=== PATIENT | male | born 1955 | race Caucasian/White ===

== ENCOUNTER 2016-12-29 16:04 | Inpatient (IN) | payer OTHER ==
[~2016-12-29] VITALS: Ht 170.2 cm; Wt 93.0 kg
[~2016-12-29 16:04] MED LIST: DOCU-144 PO; HYDR-3498 PO; [UNRECOGNIZED DRUG - OTHER] IM
--- NOTE | 2016-12-29 21:35 | ERA ---
ER Documentation Chief Complaint Date/Time DATE: 12/29/16 TIME: 21:34 Chief Complaint ABDOMINAL PAIN WITH N/V X 2 DAYS HPI The patient is a 61-year-old female, presenting to the ER because of left upper quadrant abdominal pain, nausea, vomiting for 4 days. He was seen at [facility] 2 days ago and diagnosed with acute diverticulitis. He was discharged with Cipro and Flagyl. He stated that the medications are not helping him. The pain is 10/10. He denies chills, neck pain, chest pain, dyspnea. He complains of nausea, vomiting mostly mucus, denies diarrhea constipation or dysuria. He smokes half a pack a day, denies drinking Past medical history: History of left renal carcinoma Past surgical history: Left nephrectomy ROS All systems reviewed and are negative except as per history of present illness. Medications Home Meds Active Scripts Ertapenem Sodium (Invanz) 1 Gm Vial, 1 GM IM DAILY for 14 Days, VIAL Prov:MANUELA PHILLIPS 04/13/16 Hydrocodone Bit/Acetaminophen (Anexsia 5-325 Mg Tablet) 1 Tab Tablet, 1 TAB PO Q6H Y for MODERATE PAIN LEVEL 4-6 for 14 Days, #40 TAB Prov:WILDA PINEDO MD 03/29/16 Docusate Sodium* (Colace*) 100 Mg Capsule, 100 MG PO BID Y for CONSTIPATION for 30 Days, #60 CAP Prov:WILDA PINEDO MD 03/29/16 Allergies Allergies: Coded Allergies: No Known Allergy (Unverified , 04/07/16) PMhx/Soc History of Surgery: Yes (Kidney CA (s/p LEFT kidney removal 2 years ago), hx of L nephrostomy tube) Anesthesia Reaction: No Hx Neurological Disorder: No Hx Respiratory Disorders: No Hx Cardiac Disorders: No Hx Psychiatric Problems: No Hx Miscellaneous Medical Probl: Yes (Kidney CA, Gastroenteritis, Renal Abcess) Hx Alcohol Use: No Hx Substance Use: No Hx Tobacco Use: Yes (6-8 sticks/per day) Physical Exam Vitals Vital Signs Date Time Temp Pulse Resp B/P Pulse Ox O2 Delivery O2 Flow Rate FiO2 12/29/16 16:07 103.1 116 20 130/82 95 Physical Exam Const: No acute distress. Head: Atraumatic. Eyes: Normal Conjunctiva. ENT: Normal External Ears, Nose and Mouth. Neck: Full range of motion. No meningismus. Resp: Clear to auscultation bilaterally. Cardio: Regular but tachycardic Abd: Soft, non distended, normal bowel sounds, left upper quadrant tenderness, no rigidity, rebound, CVA tenderness Skin: No petechiae or rashes. Back: No midline or flank tenderness. Ext: No cyanosis, or edema. Neur: Awake and alert. No focal deficit Psych: Normal Mood and Affect. Result Diagram: 12/29/16214412/29/162144 Results 24 hrs Laboratory Tests Test 12/29/16 21:45 12/29/16 23:00 12/29/16 23:09 White Blood Count 14.010^3/ul Red Blood Count 4.6510^6/ul Hemoglobin 14.7g/dl Hematocrit 42.9% Mean Corpuscular Volume 92.3fl Mean Corpuscular Hemoglobin 31.6pg Mean Corpuscular Hemoglobin Concent 34.3g/dl Red Cell Distribution Width 13.0% Platelet Count 96622^3/UL Mean Platelet Volume 11.8fl Neutrophils % 79.4% Lymphocytes % 10.3% Monocytes % 9.3% Eosinophils % 0.4% Basophils % 0.2% Nucleated Red Blood Cells % 0.0/100WBC Neutrophils # 11.110^3/ul Lymphocytes # 1.510^3/ul Monocytes # 1.310^3/ul Eosinophils # 0.110^3/ul Basophils # 0.010^3/ul Nucleated Red Blood Cells # 0.010^3/ul Prothrombin Time 14.9Sec Prothrombin Time Ratio 1.2 INR International Normalized Ratio 1.16 Activated Partial Thromboplast Time 38.3Sec Sodium Level 135mmol/L Potassium Level 3.8mmol/L Chloride Level 101mmol/L Carbon Dioxide Level 25mmol/L Anion Gap 13 Blood Urea Nitrogen 15mg/dl Creatinine 1.08mg/dl Glucose Level 189mg/dl Lactic Acid Level 1.1mmol/L Calcium Level 9.4mg/dl Total Bilirubin 0.6mg/dl Direct Bilirubin 0.00mg/dl Indirect Bilirubin 0.6mg/dl Aspartate Amino Transf (AST/SGOT) 16IU/L Alanine Aminotransferase (ALT/SGPT) 31IU/L Alkaline Phosphatase 77IU/L Troponin I < 0.012ng/ml Total Protein 8.0g/dl Albumin 4.2g/dl Globulin 3.80g/dl Albumin/Globulin Ratio 1.10 Urine Color YELLOW Urine Clarity CLEAR Urine pH 6.0 Urine Specific [place] 1.025 Urine Ketones NEGATIVE Urine Nitrite NEGATIVE Urine Bilirubin NEGATIVE Urine Urobilinogen 0.2 E.U./dL Urine Leukocyte Esterase TRACE Urine Microscopic RBC NONE SEEN/HPF Urine Microscopic WBC 0-2/HPF Urine Squamous Epithelial Cells RARE Urine Hemoglobin NEGATIVE Urine Glucose NEGATIVE% Urine Total Protein TRACE Bedside Urine pH (LAB) 6.0 Bedside Urine Protein (LAB) 1+ Bedside Urine Glucose (UA) Negative Bedside Urine Ketones (LAB) Negative Bedside Urine Blood Negative Bedside Urine Nitrite (LAB) Negative Bedside Urine Leukocyte Esterase (L Trace Current Medications Medications (Trade) Dose Ordered Sig/Tata Route PRN Reason Start Time Stop Time Status Last Admin Dose Admin IV Flush 10 ml 10 ml STK-MED ONCE .ROUTE 12/29/16 22:57 12/29/16 22:58 DC 12/29/16 23:16 Sodium Chloride (NS) 100 ml @ ud STK-MED ONCE .ROUTE 12/29/16 22:57 12/29/16 22:58 DC 12/29/16 23:16 Iodixanol 100 ml 100 ml STK-MED ONCE .ROUTE 12/29/16 22:57 12/29/16 22:58 DC 12/29/16 23:16 Piperacillin Sod/ Tazobactam Sod 100 ml @ 200 mls/hr ONCE ONCE IVPB 12/30/16 00:30 12/30/16 00:59 Vancomycin HCl 250 ml @ 125 mls/hr ONCE IVPB 12/30/16 00:30 12/30/16 02:29 Sodium Chloride (NS) 2,900 ml @ 2,900 mls/hr BOLUS X1 ONCE IV 12/30/16 00:30 12/30/16 01:29 Procedures/[place] [id number] Radiology Main Line: [phone] DIAGNOSTIC IMAGING REPORT Patient: AVELINA RODAS : 1955 Age: 61 Sex: M MR #: [id number] DOS: 12/29/162141 Ordering MD: JONATHAN PALACIO MD Location: E/R Room/Bed: PROCEDURE: Chest. CLINICAL INDICATION: Chest pain. TECHNIQUE: Single frontal view of the chest was obtained. COMPARISON: 04/08/2016. FINDINGS: The cardiac silhouette is magnified. The aortic arch is unremarkable. Mild left basilar atelectasis/infiltrate and probable small pleural effusion. There is no pneumothorax. IMPRESSION: Mild left basilar atelectasis/infiltrate and probable small pleural effusion. .Adam Kwon MD, Date Time Electronically viewed and signed by .Adam Kwon MD, MD on 12/29/2016 22:51 .T/ CC: JONATHAN PALACIO MD [place] [id number] Radiology Main Line: [phone] DIAGNOSTIC IMAGING REPORT Patient: AVELINA RODAS : 1955 Age: 61 Sex: M MR #: [id number] DOS: 12/29/16 2142 Ordering MD: JONATHAN PALACIO MD Location: E/R Room/Bed: PROCEDURE: CT Abdomen and Pelvis with IV contrast. CLINICAL INDICATION: Status post left nephrectomy. TECHNIQUE: CT scan of the abdomen and pelvis was performed on a multidetector slice CT scanner. 90 cc of Visipaque 320 intravenous contrast material was utilized. Sagittal and coronal reformatted images were obtained from the axial source images. Images were reviewed on a high-resolution PACS workstation. Exam CTDlvol = 20 mGy and DLP = 1180 Gy-cm. One of the following 3 dose reduction techniques were used: Automated exposure control; adjustment of the mA and/or kV according to patient size; or use of iterative reconstruction technique. COMPARISON: 04/07/2016 04/25/2017. FINDINGS: The patient status post left nephrectomy. There is a recurrent centrally hypodense fluid collection within the left nephrectomy bed the left lateral aspect of the L1 vertebral body, 3.3 x 3.9 x 5.8 cm in diameter. There is thin rim of soft tissue surrounding the relatively well-defined collection. There is adjacent surgical clips and calcifications. There is no gas within the collection. There is a small amount of infiltration and fluid adjacent to collection abutting the inferior medial aspect of the spleen. There is a punctate nonobstructing calcification in the midpole of the right kidney. The right kidney normal in appearance without hydronephrosis, mass or calculus. There is no perinephric collection. The right ureter is normal caliber and without evidence for an obstructing calculus. The urinary bladder is contracted.. Prostate gland is unremarkable. There is no obstruction or ileus. The appendix is visualized and normal in size and appearance without evidence for appendicitis. There are scattered sigmoid colon diverticuli without evidence for diverticulitis. The liver is overall normal in size. The liver is mildly hypodense/fatty. No intrahepatic lesions are identified. The gallbladder is normal in appearance. There is no definite biliary ductal dilation. Pancreas is normal in appearance. The spleen is unremarkable.. Right adrenal gland is normal appearance. Left adrenal gland is not well visualized.. The aorta is normal caliber. There are minimal atherosclerotic vascular calcifications.. Limited evaluation of the lung bases demonstrates small amount of left pleural fluid and atelectasis.. There are degenerative changes of the lumbar spine. IMPRESSION: 1. Recurrent fluid collection in the left nephrectomy bed. Mild surrounding infiltration and small amount of fluid abutting the spleen. Considerations include postoperative seroma although an infection/abscess cannot be excluded. No gas within the collection. 2. Nonobstructing right renal calcification. No obstructive uropathy. 3. Fatty liver. 4. Scattered sigmoid colon diverticuli without evidence for diverticulitis. 5. Small left pleural effusion with associated atelectasis. 6. Degenerative changes of the lumbar spine. RPTAT: HMVK .Jonathan Michel MD, Date Time Electronically viewed and signed by .Jonathan Michel MD, MD on 12/30/2016 00:12 .K/ CC: JONATHAN PALACIO MD EKG: Read by emergency physician Rate/Rhythm: Normal Sinus Rhythm 83 beats/min QRS, ST, T-waves: No ST elevation, no T inversion, LAD, right bundle branch block Impression: Abnormal EKG MEDICAL MAKING DECISION: The patient is a 61-year-old male, presenting with acute recurrent left nephrectomy bed abscess, acute pneumonia. He was treated with normal saline 30 mL/kg IV, Zosyn IV, vancomycin IV , Tylenol 650 mg p.o. for fever with good response The differential diagnoses considered include but are not limited to cholelithiasis, cholecystitis, cystitis, pancreatitis, hepatitis, gastritis, peptic ulcer disease, gastric ulcer, appendicitis, diverticulitis, cholangitis, choledocholithiasis, partial small bowel obstruction. Departure Diagnosis: Primary Impression: Intra-abdominal abscess Additional Impression: Pneumonia Condition: Stable Comments I discussed the findings with the patient. I discussed the patient with the on- call hospitalist Dr. Fischer who was made aware of the lab, the treatment, the patient condition. The patient is admitted to medical surgery bed at 12:25 AM The patient's blood pressure was elevated (>120/80) but appears stable without evidence of hypertension emergency or urgency. The patient was counseled about the risks of hypertension and urged to pursue outpatient monitoring and therapy within a week with their primary care physician. JONATHAN PALACIO MD December 29, 2016 21:35
[2016-12-29 22:14] LABS: ADD SCAN DIFF NO
[2016-12-29 22:15] LABS: BASOPHILS % 0.2 % (0.0-2.0); EOSINOPHILS # 0.1 10^3/ul (0.0-0.5); EOSINOPHILS % 0.4 % (0.0-7.0); HEMATOCRIT 42.9 % (42.0-52.0); HEMOGLOBIN 14.7 g/dl (14.0-18.0); LYMPHOCYTES # 1.5 10^3/ul (0.8-2.9); LYMPHOCYTES % 10.3 % (15.0-51.0); MEAN CORPUSCULAR HEMOGLOBIN 31.6 pg (29.0-33.0); MEAN CORPUSCULAR HGB CONC 34.3 g/dl (32.0-37.0); MEAN CORPUSCULAR VOLUME 92.3 fl (82.0-101.0); MEAN PLATELET VOLUME 11.8 fl (7.4-10.4); MONOCYTE # 1.3 10^3/ul (0.3-0.9); MONOCYTES % 9.3 % (0.0-11.0); NEUTROPHIL # 11.1 10^3/ul (1.6-7.5); NEUTROPHILS % 79.4 % (39.0-77.0); PLATELET COUNT 179 10^3/UL (140-415); RED BLOOD COUNT 4.65 10^6/ul (4.70-6.10)
[2016-12-29 22:29] LABS: INR 1.16; PROTIME 14.9 Sec (12.2-14.2); PT RATIO 1.2
[2016-12-29 22:30] LABS: PARTIAL THROMBOPLASTIN TIME 38.3 Sec (25.0-35.0)
[2016-12-29 22:34] LABS: ALANINE AMINOTRANSFERASE 31 IU/L (13-69); ALBUMIN 4.2 g/dl (3.3-4.9); ALKALINE PHOSPHATASE 77 IU/L (42-121); ANION GAP 13 (8-16); ASPARTATE AMINO TRANSFERASE 16 IU/L (15-46); BILIRUBIN,INDIRECT 0.6 mg/dl (0-1.1); BILIRUBIN,TOTAL 0.6 mg/dl (0.2-1.3); BLOOD UREA NITROGEN 15 mg/dl (7-20); CALCIUM 9.4 mg/dl (8.4-10.2); CARBON DIOXIDE 25 mmol/L (21-31); CHLORIDE 101 mmol/L (97-110); CREATININE 1.08 mg/dl (0.61-1.24); GLUCOSE 189 mg/dl (70-220); POTASSIUM 3.8 mmol/L (3.5-5.1); SODIUM 135 mmol/L (135-144)
[2016-12-29 22:48] LABS: TROPONIN-I < 0.012 ng/ml (0.00-0.12)
--- NOTE | 2016-12-29 22:51 | RADRPT ---
PROCEDURE: Chest. CLINICAL INDICATION: Chest pain. TECHNIQUE: Single frontal view of the chest was obtained. COMPARISON: 04/08/2016. FINDINGS: The cardiac silhouette is magnified. The aortic arch is unremarkable. Mild left basilar atelectasi s/infiltrate and probable small pleural effusion. There is no pneumothorax. IMPRESSION: Mild left basilar atelectasis/infiltrate and probable small pleural effusion. .Adam Kwon MD, MD Date Time Electronically viewed and signed by .Adam Kwon MD, MD on 12/29/2016 22:51 .T/
[2016-12-29] MEDS ORDERED: IODIXANOL LOCM 100 ML BTL ONE (22:57)
[2016-12-29] MEDS ORDERED: SOD CHLORIDE 0.9% 100 ML ONE (22:57)
[2016-12-29 23:08] LABS: URINE BLOOD (Dip) POC Negative (NEGATIVE)
[2016-12-29 23:31] LABS: ADD UMIC YES; URINE BILIRUBIN (Dip) NEGATIVE (NEGATIVE); URINE BLOOD (Dip) NEGATIVE (NEGATIVE); URINE COLOR YELLOW (YELLOW); URINE GLUCOSE (Dip) NEGATIVE (NEGATIVE); URINE KETONES (Dip) NEGATIVE (NEGATIVE); URINE LEUKOCYTE ESTERASE (Dip) TRACE (NEGATIVE); URINE NITRITE (Dip) NEGATIVE (NEGATIVE); URINE TOTAL PROTEIN (Dip) TRACE (NEGATIVE); URINE UROBILINOGEN (Dip) 0.2 E.U./dL (0.1-1.0)
[2016-12-29 23:59] LABS: SQUAMOUS EPITHELIAL CELL,UR RARE; URINE RBCS NONE SEEN /HPF (0)
--- NOTE | 2016-12-30 00:12 | RADRPT ---
PROCEDURE: CT Abdomen and Pelvis with IV contrast. CLINICAL INDICATION: Status post left nephrectomy. TECHNIQUE: CT scan of the abdomen and pelvis was performed on a multidetector slice CT scanner. 90 cc of Visipaque 320 intravenous contrast material was utilized. Sagittal and coronal reformatted im ages were obtained from the axial source images. Images were reviewed on a high-resolution PACS work station. Exam CTDlvol = 20 mGy and DLP = 1180 Gy-cm. One of the following 3 dose reduction technique s were used: Automated exposure control; adjustment of the mA and/or kV according to patient size; o r use of iterative reconstruction technique. COMPARISON: 04/07/2016 04/25/2017. FINDINGS: The patient status post left nephrectomy. There is a recurrent centrally hypodense fluid collection within the left nephrectomy bed the left lateral aspect of the L1 vertebral body, 3.3 x 3.9 x 5.8 c m in diameter. There is thin rim of soft tissue surrounding the relatively well-defined collection. There is adjacent surgical clips and calcifications. There is no gas within the collection. There is a small amount of infiltration and fluid adjacent to collection abutting the inferior medial aspe ct of the spleen. There is a punctate nonobstructing calcification in the midpole of the right kidney. The right kidn ey normal in appearance without hydronephrosis, mass or calculus. There is no perinephric collection . The right ureter is normal caliber and without evidence for an obstructing calculus. The urinary bladder is contracted.. Prostate gland is unremarkable. There is no obstruction or ileus. The appendix is visualized and normal in size and appearance with out evidence for appendicitis. There are scattered sigmoid colon diverticuli without evidence for di verticulitis. The liver is overall normal in size. The liver is mildly hypodense/fatty. No intrahepatic lesions ar e identified. The gallbladder is normal in appearance. There is no definite biliary ductal dilation. Pancreas is normal in appearance. The spleen is unremarkable.. Right adrenal gland is normal appear ance. Left adrenal gland is not well visualized.. The aorta is normal caliber. There are minimal a therosclerotic vascular calcifications.. Limited evaluation of the lung bases demonstrates small amount of left pleural fluid and atelectasis .. There are degenerative changes of the lumbar spine. IMPRESSION: 1. Recurrent fluid collection in the left nephrectomy bed. Mild surrounding infiltration and small amount of fluid abutting the spleen. Considerations include postoperative seroma although an infec tion/abscess cannot be excluded. No gas within the collection. 2. Nonobstructing right renal calcification. No obstructive uropathy. 3. Fatty liver. 4. Scattered sigmoid colon diverticuli without evidence for diverticulitis. 5. Small left pleural effusion with associated atelectasis. 6. Degenerative changes of the lumbar spine. RPTAT: HMVK .Jonathan Michel MD, Date Time Electronically viewed and signed by .Jonathan Michel MD, on 12/30/2016 00:12 .K/
[2016-12-30] MEDS ORDERED: SOD CHLORIDE 0.9% IV ONE (00:30)
[2016-12-30] MEDS ORDERED: PIPER-TAZO 3.375 GM IV (PMX) 100 ML IVPB ONE (00:30)
[2016-12-30] MEDS ORDERED: VANCOMYCIN 1 GM (PMX) 250 ML IVPB SCH (00:30)
[2016-12-30] MEDS: morphine 2 MG INJ IV PRN ×3 (02:23→13:05)
--- NOTE | 2016-12-30 05:27 | HP ---
Date/Time of Note Date/Time of Note DATE: 12/30/16 TIME: 05:01 Assessment/Plan VTE Prophylaxis VTE Prophylaxis Intervention: heparin Lines/Catheters IV Catheter Type (from [facility]): Peripheral IV Central line still needed: No Urinary Cath still in place: No Assessment/Plan Chief Complaint/Hosp Course This is a 7-year-old male being admitted to the [facility] floor for: #1 intra-abdominal infection: Abscess versus seroma. Patient has an elevated white blood cell count of 14 and febrile. At the current time will treat with IV antibiotics of Vanco and Zosyn. Will trend labs. Consider consult with general surgery versus urology. Await cultures. Regular diet. Tylenol for fever, Zofran for nausea #2 abnormal chest x-ray: Atelectasis versus infiltrate: Patient currently denies any cough. Currently right now being covered with Zosyn and Vanco. We will continue to monitor. #3 History of renal cell carcinoma: Status post left renal nephrectomy. #4 elevated glucose: Patient has a family history of diabetes, will check a hemoglobin A1c #5 DVT and GI prophylaxis: Heparin, Protonix Problems: HPI/ROS Admit Date/Time Admit Date/Time 12/29/2016 Hx of Present Illness The patient is a 61-year-old female, presenting to the ER because of left upper quadrant abdominal pain, nausea, vomiting for 4 days. He was seen at [facility] 2 days ago and diagnosed with acute diverticulitis. He was discharged with Cipro and Flagyl. He stated that the medications are not helping him. The pain is 10/10. He denies chills, neck pain, chest pain, dyspnea. He complains of nausea, vomiting mostly mucus, denies diarrhea constipation or dysuria. He smokes half a pack a day, denies drinking Allergies: NKDA Medicatio : See OCT ROS Const: Negative except for mentioned in the HPI Eyes : No pain discharge or redness or change in visual acuity ENT: No pain, sore throat, congestion, congestion, dysphagia or discharge Respiratory: No shortness of breath, cough, sputum, wheezing, or pleuritic pain Cardiovascular: No chest pain, palpitation, PND, or edema GI : Negative except for what is mentioned in the HPI Genitourinary: Negative except for what is mentioned in the HPI Musculoskeletal: No joint pain, back pain, neck pain, restricted range of motion in neck or joints Skin: No rash, bruising or hives Neuro: No headache, dizziness, syncope, seizure, focal weakness Endocrine: No polyuria, polydipsia, temperature intolerance Psych: No hallucination, depression, anxiety or suicidal ideation PMH/Family/Social Past Medical History History of left renal carcinoma Past Surgical History Left nephrectomy Family History Significant Family History: diabetes (Half pack per day 30 years) Social History Alcohol Use: none Smoking Status: Current every day smoker Drug Use: none Exam/Review of Systems Vital Signs Vitals Vital Signs Date Time Temp Pulse Resp B/P Pulse Ox O2 Delivery O2 Flow Rate FiO2 12/29/16 16:07 103.1 116 20 130/82 95 Exam Exam General: This is a well-developed male laying in bed in no acute distress The patient is alert oriented -3 HEENT: Atraumatic, normocephalic. The pupils are equal, round and reactive. Extraocular motor are intact Neck: Supple with full range of motion. No rigidity or meningismus Chest: Nontender Lungs: Clear to auscultation bilaterally no crackles rales or wheezing Heart: Normal S1-S2, Regular rhythm and rate. No murmur, S3, or S4 Abdomen: S soft, left abdominal quadrant pain Extremities: Normal to inspection, no edema no cyanosis Neurologic: Normal mental status, speech normal, cranial nerves II through XII are intact, motor and sensory are intact, no focal weakness Additional Comments CT abdomen pelvis 1. Recurrent fluid collection in the left nephrectomy bed. Mild surrounding infiltration and small amount of fluid abutting the spleen. Considerations include postoperative seroma although an infection/abscess cannot be excluded. No gas within the collection. 2. Nonobstructing right renal calcification. No obstructive uropathy. 3. Fatty liver. 4. Scattered sigmoid colon diverticuli without evidence for diverticulitis. 5. Small left pleural effusion with associated atelectasis. 6. Degenerative changes of the lumbar spine. Chest x-ray IMPRESSION: Mild left basilar atelectasis/infiltrate and probable small pleural effusion Labs Result Diagram: 12/29/16214412/29/162144 Medications Medications Current Medications Morphine Sulfate (morphine) 2 mg Q4H PRN IV PAIN Last administered on 12/30/16t 02:23; Admin Dose 2 MG; Start 12/30/16 at 02:00 Morphine Sulfate (morphine) 4 mg Q4H PRN IV PAIN; Start 12/30/16 at 02:00 Hydromorphone HCl (Dilaudid) 0.5 mg Q4H PRN IV PAIN; Start 12/30/16 at 02:00 DERECK GRAY December 30, 2016 05:11
[2016-12-30] MEDS ORDERED: DOCUSATE SODIUM 100 MG CAP PO PRN (05:30)
[2016-12-30] MEDS ORDERED: HYDROmorphONE 1 MG/ML SYG IV PRN (05:30)
[2016-12-30] MEDS ORDERED: ONDANSETRON 4 MG INJ IV PRN (05:30)
[2016-12-30] MEDS ORDERED: ZOLPIDEM 5 MG TAB PO PRN (05:30)
[2016-12-30] MEDS ORDERED: VANCOMYCIN IV PER PHARMACY XX SCH (05:30)
[2016-12-30] MEDS ORDERED: BISACODYL 10 MG SUPP PR PRN (05:30)
[2016-12-30] MEDS: PIPER-TAZO 3.375 GM IV (PMX) 100 ML IVPB SCH ×3 (06:02→18:06)
[2016-12-30] MEDS: HEPARIN 5,000 UNIT/0.5 ML VIAL SC SCH ×3 (06:08→20:24)
[2016-12-30 08:25] LABS: ADD SCAN DIFF NO
[2016-12-30 08:39] LABS: BASOPHILS % 0.2 % (0.0-2.0); EOSINOPHILS # 0.1 10^3/ul (0.0-0.5); EOSINOPHILS % 0.5 % (0.0-7.0); HEMATOCRIT 39.5 % (42.0-52.0); HEMOGLOBIN 13.4 g/dl (14.0-18.0); LYMPHOCYTES # 1.4 10^3/ul (0.8-2.9); LYMPHOCYTES % 10.6 % (15.0-51.0); MEAN CORPUSCULAR HEMOGLOBIN 31.2 pg (29.0-33.0); MEAN CORPUSCULAR HGB CONC 33.9 g/dl (32.0-37.0); MEAN CORPUSCULAR VOLUME 91.9 fl (82.0-101.0); MEAN PLATELET VOLUME 11.9 fl (7.4-10.4); MONOCYTE # 1.4 10^3/ul (0.3-0.9); MONOCYTES % 11.2 % (0.0-11.0); NEUTROPHIL # 9.9 10^3/ul (1.6-7.5); PLATELET COUNT 142 10^3/UL (140-415); RED CELL DISTRIBUTION WIDTH 13.2 % (11.5-14.5); WHITE BLOOD COUNT 12.9 10^3/ul (4.8-10.8)
[2016-12-30 08:49] LABS: ALBUMIN 3.2 g/dl (3.3-4.9); ALBUMIN/GLOBULIN RATIO 0.96; BILIRUBIN,INDIRECT 0.7 mg/dl (0-1.1); BILIRUBIN,TOTAL 0.7 mg/dl (0.2-1.3); CALCIUM 8.1 mg/dl (8.4-10.2); CHOL/HDL RATIO 4.2 RATIO; CREATININE 0.89 mg/dl (0.61-1.24); POTASSIUM 4.3 mmol/L (3.5-5.1); TOTAL PROTEIN 6.5 g/dl (6.1-8.1)
[2016-12-30 09:02] LABS: T3 UPTAKE 38.2 % (23.5-40.5)
[2016-12-30] MEDS: FAMOTIDINE 20 MG INJ IV SCH ×2 (09:20→20:20)
[2016-12-30] MEDS: morphine 4 MG/ML VIAL IV PRN ×3 (09:51→20:21)
[2016-12-30] MEDS: VANCOMYCIN 1.25 GM in SOD CHLORIDE 0.9% 250 ML IVPB SCH (13:05)
--- NOTE | 2016-12-30 17:03 | CONS ---
DATE OF ADMISSION: 12/30/2016 DATE OF CONSULTATION: 12/30/2016 INFECTIOUS DISEASE CONSULTATION REASON FOR CONSULTATION: Antibiotic management. HISTORY OF PRESENT ILLNESS: Eliezer Chand is a very pleasant 61-year-old male who prese nts to the emergency room with left upper quadrant abdominal pain, nausea and vomiting for 4 days. Patient was at [facility] 2 days ago and was diagnosed with acute diverticulitis, was disch arged on Cipro and Flagyl. He comes in now with pain 10/10. He does not have any fever or chills. Complains of nausea, vomiting. Does not have constipation, diarrhea or dysuria. On evaluation, hi s white count was 14,000, H and H of 14.7 and 42.9, platelet count 179,000, BUN and creatinine 16/1. 008, glucose of 189. Chest x-ray shows mild left basilar atelectasis/infiltrate and probable small pleural effusion. A CT scan of the abdomen and pelvis shows recurrent fluid collection in the left nephrectomy bed. He had mild surrounding infiltration and a small amount of fluid abutting the sple en. Considerations include postoperative seroma, although an infection/abscess cannot be excluded f ar. No gas within the collection, nonobstructing right renal calcification. No obstructive uropath y. PAST MEDICAL HISTORY: History of left renal carcinoma. PAST SURGICAL HISTORY: Status post left nephrectomy. FAMILY HISTORY: Family history of diabetes. SOCIAL HISTORY: He smokes half pack a day for 30 years. He does not drink or abuse drugs. ALLERGIES: NONE TO PENICILLIN, SULFA OR FOODS. MEDICATIONS: Per chart. REVIEW OF SYSTEMS: Noncontributory. PHYSICAL EXAMINATION: GENERAL: The patient is a well-developed, moderately obese male who is alert, responsive, in no acu te distress, speaking Upper Sorbian. VITAL SIGNS: T-max of 103.1, pulse 116, blood pressure 130/82, respirations 20, pulse ox of 95. SKIN: Without generalized rash. HEENT: Within normal limits. NECK: Supple. LYMPH NODES: None palpable. LUNGS: Clear to P and A. Decreased breath sounds at the bases. HEART: Without murmur or gallop. ABDOMEN: He has significant left upper quadrant pain. Otherwise, abdomen is soft, nontender, witho ut organosplenomegaly or masses. EXTREMITIES: Without cyanosis, clubbing, or edema. RECTAL AND GENITAL: Deferred. NEUROLOGIC: No focal neurological abnormalities. IMPRESSION AND PLAN: Patient most likely has an intra-abdominal infection. He has a white count of 14,000 and a temperature of 103.1. He was started on vancomycin and Zosyn. A surgical urological consult will be called. He also has atelectasis versus infiltrate in the lungs. We should make lokesh e he had blood cultures done and urine cultures done and we will continue him on current antibiotic therapy. He may benefit from invasive radiology sticking a needle into the fluid collection and ining it if possible rather than a surgical approach. I will dictate my findings to the hospitalist . Dictated By: AZAM COLON MD, JD/RAFY Conf#: [id number] DID#: [id number]
[2016-12-30 17:12] VITALS: BP 107/64; PULSE 77; RESP 18
[2016-12-30 18:27] VITALS: Ht 170.2 cm; Wt 93.0 kg
[2016-12-30 20:10] VITALS: BP 115/70; RESP 20
[2016-12-31] VITALS (7 sets, daily range): BP systolic 93–126; BP diastolic 64–80; PULSE 65–72; RESP 18–21
[2016-12-31] MEDS: PIPER-TAZO 3.375 GM IV (PMX) 100 ML IVPB SCH ×4 (00:27→17:23)
[2016-12-31] MEDS: morphine 4 MG/ML VIAL IV PRN ×2 (00:28→06:45)
[2016-12-31] MEDS: VANCOMYCIN 1.25 GM in SOD CHLORIDE 0.9% 250 ML IVPB SCH ×3 (01:00→13:54)
[2016-12-31] MEDS: HEPARIN 5,000 UNIT/0.5 ML VIAL SC SCH ×3 (07:05→21:47)
[2016-12-31] MEDS: FAMOTIDINE 20 MG INJ IV SCH ×2 (08:59→21:27)
[2016-12-31] MEDS: HYDROmorphONE 1 MG/ML SYG IV PRN ×3 (08:59→21:24)
[2016-12-31 10:29] LABS: ADD SCAN DIFF NO
[2016-12-31 10:44] LABS: BASOPHILS % 0.3 % (0.0-2.0); EOSINOPHILS # 0.1 10^3/ul (0.0-0.5); EOSINOPHILS % 1.3 % (0.0-7.0); HEMOGLOBIN 12.8 g/dl (14.0-18.0); LYMPHOCYTES # 1.3 10^3/ul (0.8-2.9); LYMPHOCYTES % 13.6 % (15.0-51.0); MEAN CORPUSCULAR HEMOGLOBIN 31.6 pg (29.0-33.0); MEAN CORPUSCULAR HGB CONC 34.6 g/dl (32.0-37.0); MEAN CORPUSCULAR VOLUME 91.4 fl (82.0-101.0); MEAN PLATELET VOLUME 11.8 fl (7.4-10.4); MONOCYTE # 1.1 10^3/ul (0.3-0.9); NEUTROPHIL # 6.8 10^3/ul (1.6-7.5); NEUTROPHILS % 72.4 % (39.0-77.0); PLATELET COUNT 168 10^3/UL (140-415); RED BLOOD COUNT 4.05 10^6/ul (4.70-6.10); RED CELL DISTRIBUTION WIDTH 12.9 % (11.5-14.5); WHITE BLOOD COUNT 9.4 10^3/ul (4.8-10.8)
[2016-12-31 10:55] LABS: CALCIUM 8.2 mg/dl (8.4-10.2); CREATININE 0.86 mg/dl (0.61-1.24); MAGNESIUM 2.4 mg/dl (1.7-2.5); POTASSIUM 4.6 mmol/L (3.5-5.1)
[2016-12-31 13:02] LABS: AMYLASE 73 U/L (11-123)
[2016-12-31] MEDS ORDERED: LIDOCAINE 1% (MDV) 20 ML INJ ONE (14:00)
[2016-12-31] MEDS ORDERED: MIDAZOLAM 1 MG/ML 2 ML INJ ONE (14:00)
[2016-12-31] MEDS ORDERED: FENTAnyl 50 MCG/ML VIAL ONE (14:00)
--- NOTE | 2016-12-31 15:07 | CONS ---
DATE OF ADMISSION: 12/30/2016 DATE OF CONSULTATION: 12/31/2016 TYPE OF CONSULTATION: Surgical REQUESTING PHYSICIAN: Hospitalist service. REASON FOR CONSULTATION: Abdominal pain, flank pain and accumulation of fluid in the bed of the nep hrectomy site. Thank you dear doctors for the consultation. HISTORY OF PRESENT ILLNESS: As you know, this 61-year-old patient presented to the emergency room because of left upper quadrant abdominal pain, nausea and vomiting for 4 days. He was seen first in the 3 days ago, diagnosed with acute diverticulitis, discharged home with Cipro and Flagyl, but the patient did not get better, so he came to the emergency room. Pain is 10/10. He denies any chills, neck pain, chest pain, dyspnea. Also complains of nausea and vomiting, mostly liquids. Denies diarrhea, constipation or dysuria. SOCIAL HISTORY: Smokes 1/2 pack of cigarettes a day. Denies drinking. PAST MEDICAL HISTORY: History of left renal carcinoma, nephrectomy a few years ago. Apparently, [facility] patient has been admitted here in this hospital several times, starting in February 2016 with the bo caroline problem and they found on CT scan accumulation of fluid in the nephrectomy site and this was actua lly aspirated and a pigtail was placed once. It was removed after 7 days when stopped draining, but the patient came back again and had more fluid accumulation and again another pigtail was placed. The fluid apparently showed presence of high lipase and amylase content. So the impression was some how leakage from the pancreatic tail and/or pseudocyst following nephrectomy. After placement of e last pigtail, the patient was discharged, and the patient has been followed by in the office by Dr James Rojas. REVIEW OF SYSTEMS: Except what was mentioned in history of present illness. MEDICATIONS: Please refer to the reconciliation. ALLERGIES: NO KNOWN DRUG ALLERGIES. PHYSICAL EXAMINATION: GENERAL: The patient is alert, awake. VITAL SIGNS: Temperature 98.3 yesterday, was 99.7 today, heart rate 72, respirations 18, blood pres sure 93/64, saturation 95% on room air. HEENT: Within normal limits. NECK: Supple with full range of motion. CHEST: Symmetrical expansion of hemithoraces. LUNGS: Clear to auscultation. HEART: Regular rhythm, no murmur. ABDOMEN: Soft. There is some left upper quadrant tenderness on deep pressure, also left flank tend erness. EXTREMITIES: Normal. No pitting edema. NEUROLOGIC: Mental status, the patient is alert, awake, oriented x3. LABORATORY DATA: On admission, WBC was 14,000 with 79% segmented with shift to the left, Today is 9.4 WBC and 72% segmented. Hemoglobin and hematocrit are stable at 12.8 and 37. Chemistry: Serum amylase and lipase 73 and 87. Albumin is 3.2, globulin 3.3. Otherwise, unremarkable. Coagulation: INR is 1.16, which is normal. IMAGING: Chest x-ray was done on the way to the floor yesterday, there is mild left basilar atelect asis/infiltrate and possible small pleural effusion. CT scan of the abdomen and pelvis impression i s: 1. Recurrent fluid collection in the left nephrectomy bed, mild surrounding infiltration and a smal l amount of fluid abutting the spleen. Considerations include postoperative seroma and infection/ab scess cannot be excluded. No gas within the collection. Size of the fluid has been measured 3.3 x 3.9 x 5.8 cm in diameter. 2. Nonobstructing right renal calcification, no obstructive uropathy. 3. Fatty liver. 4. Scattered sigmoid colon diverticula without evidence of diverticulitis. 5. Small left pleural effusion and associated atelectasis. 6. Degenerative changes of the lumbar spine. ASSESSMENT: This is a 61-year-old gentleman with history of adenocarcinoma of the left kidney, stat us post left nephrectomy and status post accumulation of fluid in the bed of the left nephrectomy si te several times, which has been drained at least 3 times and once it proved to be high content of t he amylase and lipase. Again, he is presenting with the same picture of pain and nausea and vomitin g. CT scan 2 days ago revealed presence of a large fluid collection, and the patient has leukocytos is. The patient was started on antibiotics and has responded to antibiotic treatment, but the left kidney collection fluid should be drained by the radiologist and a pigtail drain should be left ther e, and further decisions will be made later on. Thank you for the consultation. I will continue following the patient along with other colleagues. Dictated By: CHARMAINE HANSON/RAFY Conf#: [id number] DID#: [id number]
--- NOTE | 2016-12-31 15:19 | RADRPT ---
CT guided drainage of left renal fossa collection CDTIvol = 20.1 mGy; DLP = 1179 mGy-cm Physician: Cj Lemon M.D. CLINICAL INDICATION: Pre Procedure diagnosis: Left renal fossa flexion Post Procedure diagnosis: Abscess Estimated blood loss: 5 cc Meds: 1mg of Versed, 50mcg Fentanyl. An IR nurse was present throughout the procedure. Time under sedation: 60 min Contrast: none Complications: none COMPARISON: none PROCEDURE: 1. Drainage of left renal fossa collection 2. CT guidance 3. Moderate Sedation TECHNIQUE: The procedure, risks and alternatives were explained to the patient/patient's agent and i nformed consent obtained. The patient was first brought into the CT suite and positioned on the tabl e in the prone position. The left back was prepped and draped in the usual sterile fashion. Focused axial CT slices obtained throughout the abdomen, again demonstrating a fluid collection in the left renal fossa. CT landmarks and an18G needle was used to access the fluid collection from a posterior approach. 2 cc of fluid was aspirated, confirming proper access. An 035 wire was used to serially dilate the s oft tissue tract, then insert a 10 F multipurpose catheter which was demonstrated to be in the cavit y on follow up imaging. Approximately 10 cc of purulent fluid was drained into the drainage bag. The tube was locked and sutured to the pt's skin, then attached to a bag for drainage. FINDINGS: Again seen, is a fluid collection in the left renal fossa. Post procedure imaging demons trated the pigtail within the fluid collection. No visualized hematoma. IMPRESSION: Successful 10 Nepali drain placement into the left renal fossa abscess. RPTAT:PP .Cj Lemon MD, MD Date Time Electronically viewed and signed by .Cj Lemon MD, MD on 12/31/2016 15:18 .V/
[2016-12-31] MEDS ORDERED: HYDROmorphONE 1 MG/ML SYG IV STA (16:01)
[2016-12-31] MEDS: morphine 2 MG INJ IV PRN (18:55)
--- NOTE | 2016-12-31 18:58 | PN ---
Date/Time of Note Date/Time of Note DATE: 12/31/16 TIME: 18:49 Assessment/Plan VTE Prophylaxis VTE Prophylaxis Intervention: ambulation, SCD's Lines/Catheters IV Catheter Type (from [facility]): Peripheral IV Urinary Cath still in place: No Assessment/Plan Assessment/Plan This is a 61-year-old male who presented to the emergency room with left-sided abdominal and flank pain now managed for: #1 Sepsis 2/2 Recurrent L renal fossa Collection / abscess #2 Minimal L sided infiltrate r/o PNA #3 History of renal cell carcinoma: Status post left renal nephrectomy. PLAN: * Continue antibiotics, appreciate ID input * Plan for interventional radiology drainage of abscess drain placements today/ appreciate surgical input * Will order cultures, amylase and lipase levels on drainage fluid. * If Lipase levels are elevated, will order MRCP, as previous MRCP had shown dilatation in the pancreatic duct and patient underwent ERCP and stent placement at that time. * Serum lipase is however normal at this time * Continue supportive care. DVT and GI prophylaxis: Heparin, Protonix Subjective 24 Hr Interval Summary Free Text/Dictation Patient was seen earlier today at about 10:30 in the morning. At that time he reported improvement in abdominal pain. He was n.p.o. for CT-guided drainage of abdominal abscess. He denied nausea or vomiting. Exam/Review of Systems Vital Signs Vitals Vital Signs Date Time Temp Pulse Resp B/P Pulse Ox O2 Delivery O2 Flow Rate FiO2 12/31/16 15:50 97.7 18 110/64 97 Room Air 12/31/16 15:30 2 12/31/16 15:05 72 Intake and Output 12/30/16 12/30/16 12/31/16 14:59 22:59 06:59 Intake Total 100 ml 350 ml Output Total 600 ml Balance 100 ml -250 ml Exam GENERAL: Patient is alert, oriented x 3, in no apparent distress; does not appear acutely or chronically ill. Patient is able to sit up unassisted.Patient makes good eye contact, is conversant, interactive, coherent. Patient appears calm and comfortable and is able to follow commands. HEENT: Oropharynx is clear. There is no carotid bruit, no masses. Patient's pupils are equal, round and reactive to light bilaterally. Extraocular motions are intact. There is no scleral icterus. There is no facial asymmetry. NECK: Supple. LUNGS: Clear to auscultation bilaterally with good air entry. No Wheezes or crackles. HEART: S1, S2. No murmur, gallops or rubs. Regular rate and rhythm. ABDOMEN: Soft, nontender. Normoactive bowel sounds. There are no stigmata of chronic liver disease. BACK: L sided flank tenderness and pain GENITOURINARY: Deferred. EXTREMITIES: No edema. There is no cyanosis, clubbing. There are 2+ pulses bilaterally distally. NEUROLOGIC: The patient has no lateralizing signs. Cranial nerves II-XII are intact. SKIN: Otherwise, unremarkable. Results Result Diagram: 12/31/16 1025 12/31/16 1025 Results 24 hrs Laboratory Tests Test 12/31/16 10:25 12/31/16 11:55 White Blood Count 9.4 # Red Blood Count 4.05 L Hemoglobin 12.8 L Hematocrit 37.0 L Mean Corpuscular Volume 91.4 Mean Corpuscular Hemoglobin 31.6 Mean Corpuscular Hemoglobin Concent 34.6 Red Cell Distribution Width 12.9 Platelet Count 168 Mean Platelet Volume 11.8 H Neutrophils % 72.4 Lymphocytes % 13.6 L Monocytes % 12.0 H Eosinophils % 1.3 Basophils % 0.3 Nucleated Red Blood Cells % 0.0 Neutrophils # 6.8 Lymphocytes # 1.3 Monocytes # 1.1 H Eosinophils # 0.1 Basophils # 0.0 Nucleated Red Blood Cells # 0.0 Sodium Level 134 L Potassium Level 4.6 Chloride Level 104 Carbon Dioxide Level 24 Anion Gap 11 Blood Urea Nitrogen 12 Creatinine 0.86 Glucose Level 103 Calcium Level 8.2 L Magnesium Level 2.4 Amylase Level 73 Lipase 87 Vancomycin Level Trough 8.2 L Medications Medications Current Medications Morphine Sulfate (morphine) 2 mg Q4H PRN IV PAIN Last administered on 12/30/16 13:05; Admin Dose 2 MG; Start 12/30/16 at 02:00 Morphine Sulfate (morphine) 4 mg Q4H PRN IV PAIN Last administered on 12/31/16 06:45; Admin Dose 4 MG; Start 12/30/16 at 02:00 Hydromorphone HCl (Dilaudid) 0.5 mg Q4H PRN IV PAIN Last administered on 13:44; Admin Dose 0.5 MG; Start 12/30/16 at 02:00 Ondansetron HCl (Zofran Inj) 4 mg Q6H PRN IV NAUSEA AND/OR VOMITING; Start 12/30 at 05:30 Docusate Sodium (Colace) 100 mg Q12H PRN PO CONSTIPATION; Start 12/30/16 at 05: 30 Bisacodyl (Dulcolax Supp) 10 mg DAILY PRN [place] CONSTIPATION; Start 12/30/16 at 05: 30 Zolpidem Tartrate (Ambien) 5 mg QHS PRN PO SLEEP; Start 12/30/16 at 05:30 Famotidine (Pepcid Iv) 20 mg Q12 IV Last administered on 12/31/16 08:59; Admin Dose 20 MG; Start 12/30/16 at 09:00 Heparin Sodium (Porcine) 5000 unit 5,000 unit Q8 SC Last administered on 07:05; Admin Dose 5,000 UNIT; Start 12/30/16 at 06:00 Piperacillin Sod/ Tazobactam Sod 100 ml @ 200 mls/hr Q6 IVPB Last administered on 12/31/16 17:23; Admin Dose 200 MLS/HR; Start 12/30/16 at 06:00 Vancomycin HCl/ Sodium Chloride (Vancocin/NS) 250 ml @ 83.333 mls/ hr Q12H IVPB Last administered on 12/31/16 13:54; Admin Dose 83.333 MLS/HR; Start at 13:00; Stop 12/31/16 at 19:00 Docusate Sodium (Colace) 100 mg BID PRN PO CONSTIPATION; Start 12/30/16 at 06:00 Acetaminophen/ Hydrocodone Bitart 1 tab 1 tab Q6H PRN PO breakthrough pain; Start 12/30/16 at 15:30 Vancomycin HCl/ Sodium Chloride (Vancocin/NS) 250 ml @ 83.333 mls/ hr Q12H IVPB ; Start 01/01/17 at 03:00 ANALY TY December 31, 2016 18:58
[2016-12-31] MEDS: MEROPENEM 500 MG/100 ML (PMX) 100 ML IVPB SCH (21:27)
[2017-01-01] MEDS: morphine 2 MG INJ IV PRN ×2 (00:36→05:44)
--- NOTE | 2017-01-01 01:56 | PNNICU ---
DATE: SUBJECTIVE: No acute changes overnight. The patient is alert, denies pain, looks comfortable, no f rima. WBC today 9.4, platelets 168, neutrophils 72.4, BUN 12, creatinine 0.86. DIAGNOSTICS: CT of the abdomen revealed left nephrectomy bed recurrent fluid collection. ANTIMICROBIALS: The patient is on IV vancomycin and Zosyn. MICROBIOLOGY: Cultures preliminary negative. PHYSICAL EXAMINATION: GENERAL: Well-developed elderly man who is awake, in no distress. HEENT: Head atraumatic, normocephalic. Sclerae anicteric. Buccal mucosa dry. NECK: Supple, trachea midline. CHEST: Rise symmetrical. Breath sounds diminished to bases. HEART: S1, S2. ABDOMEN: Soft. Bowel sounds present. EXTREMITIES: Without cyanosis. ASSESSMENT: 1. Recurrent fluid collection in the left nephrectomy bed, possible abscess. 2. Systemic inflammatory response syndrome. 3. History of left renal cell carcinoma status post nephrectomy several years ago. 4. History of pancreatic stent placement on 03/23/2016. PLAN: The patient grew E. coli ESBL from his aspirated fluid on previous admission. We are going t o change Zosyn to meropenem. Continue vancomycin for now. Await CT-guided drainage of the fluid an d final cultures. Dictated By: AUGUSTUS CASTELLANOS PILL PACKER for AZAM DEL CASTILLO/RAFY Conf#: [id number] DID#: [id number]
[2017-01-01] MEDS: HYDROmorphONE 1 MG/ML SYG IV PRN ×5 (02:19→23:26)
[2017-01-01] MEDS ORDERED: VANCOMYCIN 1.5 GM in SOD CHLORIDE 0.9% 250 ML IVPB SCH (03:00)
[2017-01-01] MEDS ORDERED: VANCOMYCIN 1.75 GM in NS 500 ML IVPB SCH (03:00)
[2017-01-01] MEDS: MEROPENEM 500 MG/100 ML (PMX) 100 ML IVPB SCH ×3 (05:44→22:38)
[2017-01-01] MEDS: HEPARIN 5,000 UNIT/0.5 ML VIAL SC SCH ×2 (06:28→13:39)
[2017-01-01 07:54] VITALS: BP 103/67; RESP 19
[2017-01-01 08:01] LABS: ADD SCAN DIFF NO
[2017-01-01 08:08] LABS: BASOPHILS % 0.3 % (0.0-2.0); EOSINOPHILS # 0.1 10^3/ul (0.0-0.5); EOSINOPHILS % 1.6 % (0.0-7.0); HEMATOCRIT 38.6 % (42.0-52.0); HEMOGLOBIN 13.4 g/dl (14.0-18.0); LYMPHOCYTES % 13.2 % (15.0-51.0); MEAN CORPUSCULAR HEMOGLOBIN 31.6 pg (29.0-33.0); MEAN CORPUSCULAR HGB CONC 34.7 g/dl (32.0-37.0); MEAN PLATELET VOLUME 11.9 fl (7.4-10.4); MONOCYTE # 0.9 10^3/ul (0.3-0.9); MONOCYTES % 11.7 % (0.0-11.0); NEUTROPHIL # 5.4 10^3/ul (1.6-7.5); NEUTROPHILS % 72.8 % (39.0-77.0); PLATELET COUNT 181 10^3/UL (140-415); RED BLOOD COUNT 4.24 10^6/ul (4.70-6.10); RED CELL DISTRIBUTION WIDTH 12.7 % (11.5-14.5); WHITE BLOOD COUNT 7.4 10^3/ul (4.8-10.8)
[2017-01-01 08:19] LABS: POTASSIUM 4.1 mmol/L (3.5-5.1)
[2017-01-01 08:21] LABS: CREATININE 0.93 mg/dl (0.61-1.24)
[2017-01-01 08:22] LABS: CALCIUM 8.7 mg/dl (8.4-10.2)
[2017-01-01] MEDS: FAMOTIDINE 20 MG INJ IV SCH (08:24)
[2017-01-01] MEDS: NACL 0.9% 3 ML SYG IV SCH ×3 (08:28→17:22)
[2017-01-01] MEDS: HYDROCODONE/APAP (10/325) TAB PO PRN ×2 (10:21→17:22)
--- NOTE | 2017-01-01 11:48 | PN ---
Date/Time of Note Date/Time of Note DATE: 01/01/17 TIME: 11:48 Assessment/Plan VTE Prophylaxis VTE Prophylaxis Intervention: heparin Lines/Catheters IV [facility] [place] Urinary Cath still in place: No Assessment/Plan Assessment/Plan This is a 61-year-old male who presented to the emergency room with left-sided abdominal and flank pain now managed for: #1 Sepsis 2/2 Recurrent L renal fossa Collection / abscess #2 Minimal L sided infiltrate r/o PNA #3 History of renal cell carcinoma: Status post left renal nephrectomy. PLAN: * Continue antibiotics, appreciate ID input * F/u cultures, amylase and lipase levels on drainage fluid. * If Lipase levels are elevated, will order MRCP, as previous MRCP had shown dilatation in the pancreatic duct and patient underwent ERCP and stent placement at that time. * Serum lipase is however normal at this time * Continue supportive care. DVT and GI prophylaxis: SCDS, Protonix Subjective 24 Hr Interval Summary Free Text/Dictation patient states pain is improved Drain placed successfully yesterday Exam/Review of Systems Vital Signs Vitals Vital Signs Date Time Temp Pulse Resp B/P Pulse Ox O2 Delivery O2 Flow Rate FiO2 01/01/17 07:54 98.5 67 19 103/67 97 12/31/16 15:50 Room Air 12/31/16 15:30 2 Intake and Output 12/31/16 12/31/16 01/01/17 15:00 23:00 07:00 Intake Total 2130 ml 1150 ml Output Total 1410 ml 645 ml Balance 720 ml 505 ml Exam GENERAL: Patient is alert, oriented x 3, in no apparent distress; does not appear acutely or chronically ill. Patient is able to sit up unassisted.Patient makes good eye contact, is conversant, interactive, coherent. Patient appears calm and comfortable and is able to follow commands. HEENT: Oropharynx is clear. There is no carotid bruit, no masses. Patient's pupils are equal, round and reactive to light bilaterally. Extraocular motions are intact. There is no scleral icterus. There is no facial asymmetry. NECK: Supple. LUNGS: Clear to auscultation bilaterally with good air entry. No Wheezes or crackles. HEART: S1, S2. No murmur, gallops or rubs. Regular rate and rhythm. ABDOMEN: Soft, nontender. Normoactive bowel sounds. There are no stigmata of chronic liver disease. BACK: Drain in L flank posteriorly, about 40cc blood discharge in bottle so far GENITOURINARY: Deferred. EXTREMITIES: No edema. There is no cyanosis, clubbing. There are 2+ pulses bilaterally distally. NEUROLOGIC: The patient has no lateralizing signs. Cranial nerves II-XII are intact. SKIN: Otherwise, unremarkable. Results Result Diagram: 01/01/17 0653 01/01/17652 Results 24 hrs Laboratory Tests Test 12/31/16 11:55 01/01/17 02:12 01/01/17 06:53 01/01/17 08:17 Vancomycin Level Trough 8.2 L Bedside Glucose 96 86 White Blood Count 7.4 # Red Blood Count 4.24 L Hemoglobin 13.4 L Hematocrit 38.6 L Mean Corpuscular Volume 91.0 Mean Corpuscular Hemoglobin 31.6 Mean Corpuscular Hemoglobin Concent 34.7 Red Cell Distribution Width 12.7 Platelet Count 181 Mean Platelet Volume 11.9 H Neutrophils % 72.8 Lymphocytes % 13.2 L Monocytes % 11.7 H Eosinophils % 1.6 Basophils % 0.3 Nucleated Red Blood Cells % 0.0 Neutrophils # 5.4 Lymphocytes # 1.0 Monocytes # 0.9 Eosinophils # 0.1 Basophils # 0.0 Nucleated Red Blood Cells # 0.0 Sodium Level 136 Potassium Level 4.1 Chloride Level 103 Carbon Dioxide Level 23 Anion Gap 14 Blood Urea Nitrogen 11 Creatinine 0.93 Glucose Level 87 Calcium Level 8.7 Medications Medications Current Medications Morphine Sulfate (morphine) 2 mg Q4H PRN IV PAIN Last administered on 01/01/17 05:44; Admin Dose 2 MG; Start 12/30/16 at 02:00 Morphine Sulfate (morphine) 4 mg Q4H PRN IV PAIN Last administered on 12/31/16 06:45; Admin Dose 4 MG; Start 12/30/16 at 02:00 Hydromorphone HCl (Dilaudid) 0.5 mg Q4H PRN IV PAIN Last administered on 08:24; Admin Dose 0.5 MG; Start 12/30/16 at 02:00 Ondansetron HCl (Zofran Inj) 4 mg Q6H PRN IV NAUSEA AND/OR VOMITING; Start 12/30 at 05:30 Docusate Sodium (Colace) 100 mg Q12H PRN PO CONSTIPATION; Start 12/30/16 at 05: 30 Bisacodyl (Dulcolax Supp) 10 mg DAILY PRN [place] CONSTIPATION; Start 12/30/16 at 05: 30 Zolpidem Tartrate (Ambien) 5 mg QHS PRN PO SLEEP; Start 12/30/16 at 05:30 Famotidine (Pepcid Iv) 20 mg Q12 IV Last administered on 01/01/17 08:24; Admin Dose 20 MG; Start 12/30/16 at 09:00 Heparin Sodium (Porcine) (Heparin (5000 Units/0.5 ml)) 5,000 unit Q8 SC Last administered on 01/01/17 06:28; Admin Dose 5,000 UNIT; Start 12/30/16 at 06:00 Docusate Sodium (Colace) 100 mg BID PRN PO CONSTIPATION; Start 12/30/16 at 06:00 Acetaminophen/ Hydrocodone Bitart 1 tab 1 tab Q6H PRN PO breakthrough pain Last administered on 01/01/17 10:21; Admin Dose 1 TAB; Start 12/30/16 at 15:30 Vancomycin HCl 1.5 gm/Sodium Chloride 250 ml @ 83.333 mls/ hr Q12H IVPB Last administered on 01/01/17 02:12; Admin Dose 83.333 MLS/HR; Start 01/01/17 at 03:00 Meropenem (Merrem 500 Mg/ 100 ml (Pmx)) 100 ml @ 200 mls/hr Q8 IVPB Last administered on 01/01/17 05:44; Admin Dose 200 MLS/HR; Start 12/31/16 at 22:[address] guided drainage of left renal fossa collection CDTIvol = 20.1 mGy; DLP = 1179 mGy-cm Physician: Cj Lemon M.D. CLINICAL INDICATION: Pre Procedure diagnosis: Left renal fossa flexion Post Procedure diagnosis: Abscess Estimated blood loss: 5 cc Meds: 1mg of Versed, 50mcg Fentanyl. An IR nurse was present throughout the procedure. Time under sedation: 60 min Contrast: none Complications: none COMPARISON: none PROCEDURE: 1. Drainage of left renal fossa collection 2. CT guidance 3. Moderate Sedation TECHNIQUE: The procedure, risks and alternatives were explained to the patient/ patient's agent and informed consent obtained. The patient was first brought into the CT suite and positioned on the table in the prone position. The left back was prepped and draped in the usual sterile fashion. Focused axial CT slices obtained throughout the abdomen, again demonstrating a fluid collection in the left renal fossa. CT landmarks and an18G needle was used to access the fluid collection from a posterior approach. 2 cc of fluid was aspirated, confirming proper access. An 035 wire was used to serially dilate the soft tissue tract, then insert a 10 F multipurpose catheter which was demonstrated to be in the cavity on follow up imaging. Approximately 10 cc of purulent fluid was drained into the drainage bag. The tube was locked and sutured to the pt's skin, then attached to a bag for drainage. FINDINGS: Again seen, is a fluid collection in the left renal fossa. Post procedure imaging demonstrated the pigtail within the fluid collection. No visualized hematoma. IMPRESSION: Successful 10 [place] drain placement into the left renal fossa abscess. RPTAT:PP .Cj Lemon MD, MD Date Time Electronically viewed and signed by .Cj Lemon MD, MD on 12/31/2016 15:18 .V/ CC: ANALY TY BOLATITO M. January 01, 2017 11:48
[2017-01-01] MEDS: DOCUSATE SODIUM 100 MG CAP PO PRN (13:40)
--- NOTE | 2017-01-01 15:31 | CONS ---
Date/Time of Note Date/Time of Note DATE: 01/01/17 TIME: 15:29 Assessment/Plan Assessment/Plan Chief Complaint/Hosp Course SUBJECTIVE: No acute changes overnight. The patient is alert, denies pain, looks comfortable, no fevers. ANTIMICROBIALS: The patient is on IV vancomycin and Merrem. MICROBIOLOGY: Fluid cx + GNR. PHYSICAL EXAMINATION: GENERAL: Well-developed elderly man who is awake, in no distress. HEENT: Head atraumatic, normocephalic. Sclerae anicteric. Buccal mucosa dry. NECK: Supple, trachea midline. CHEST: Rise symmetrical. Breath sounds diminished to bases. HEART: S1, S2. ABDOMEN: Soft. Bowel sounds present. EXTREMITIES: Without cyanosis. ASSESSMENT: 1. Recurrent fluid left perinephric abscess, s/p CT guided drainage. 2. Systemic inflammatory response syndrome. 3. History of left renal cell carcinoma status post nephrectomy several years ago. 4. History of pancreatic stent placement on 03/23/2016. PLAN: Remains stable, dc Vanco, continue Merrem, f/u final cx DW staff Problems: Consultation Date/Type/Reason Admit Date/Time December 30, 2016 at 00:28 Initial Consult Date Type of Consultation: id Exam/Review of Systems Vital Signs Vitals Vital Signs Date Time Temp Pulse Resp B/P Pulse Ox O2 Delivery O2 Flow Rate FiO2 01/01/17 07:54 98.5 67 19 103/67 97 12/31/16 15:50 Room Air 12/31/16 15:30 2 Intake and Output 12/31/16 12/31/16 01/01/17 15:00 23:00 07:00 Intake Total 2130 ml 1150 ml Output Total 1410 ml 645 ml Balance 720 ml 505 ml Results Result Diagram: 01/01/17 0653 01/01/17 0653 Results 24 hrs Laboratory Tests Test 01/01/17 02:12 01/01/17 06:53 01/01/17 08:17 01/01/17 12:34 Bedside Glucose 96 86 91 White Blood Count 7.4 # Red Blood Count 4.24 L Hemoglobin 13.4 L Hematocrit 38.6 L Mean Corpuscular Volume 91.0 Mean Corpuscular Hemoglobin 31.6 Mean Corpuscular Hemoglobin Concent 34.7 Red Cell Distribution Width 12.7 Platelet Count 181 Mean Platelet Volume 11.9 H Neutrophils % 72.8 Lymphocytes % 13.2 L Monocytes % 11.7 H Eosinophils % 1.6 Basophils % 0.3 Nucleated Red Blood Cells % 0.0 Neutrophils # 5.4 Lymphocytes # 1.0 Monocytes # 0.9 Eosinophils # 0.1 Basophils # 0.0 Nucleated Red Blood Cells # 0.0 Sodium Level 136 Potassium Level 4.1 Chloride Level 103 Carbon Dioxide Level 23 Anion Gap 14 Blood Urea Nitrogen 11 Creatinine 0.93 Glucose Level 87 Calcium Level 8.7 Medications Medications Current Medications Morphine Sulfate (morphine) 2 mg Q4H PRN IV PAIN Last administered on 01/01/17 05:44; Admin Dose 2 MG; Start 12/30/16 at 02:00 Morphine Sulfate (morphine) 4 mg Q4H PRN IV PAIN Last administered on 12/31/16 06:45; Admin Dose 4 MG; Start 12/30/16 at 02:00 Hydromorphone HCl (Dilaudid) 0.5 mg Q4H PRN IV PAIN Last administered on 13:31; Admin Dose 0.5 MG; Start 12/30/16 at 02:00 Ondansetron HCl (Zofran Inj) 4 mg Q6H PRN IV NAUSEA AND/OR VOMITING; Start 12/30 at 05:30 Docusate Sodium (Colace) 100 mg Q12H PRN PO CONSTIPATION; Start 12/30/16 at 05: 30 Bisacodyl (Dulcolax Supp) 10 mg DAILY PRN [place] CONSTIPATION; Start 12/30/16 at 05: 30 Zolpidem Tartrate (Ambien) 5 mg QHS PRN PO SLEEP; Start 12/30/16 at 05:30 Docusate Sodium (Colace) 100 mg BID PRN PO CONSTIPATION Last administered on 13:40; Admin Dose 100 MG; Start 12/30/16 at 06:00 Acetaminophen/ Hydrocodone Bitart 1 tab 1 tab Q6H PRN PO breakthrough pain Last administered on 01/01/17 10:21; Admin Dose 1 TAB; Start 12/30/16 at 15:30 Vancomycin HCl 1.5 gm/Sodium Chloride 250 ml @ 83.333 mls/ hr Q12H IVPB Last administered on 01/01/17 02:12; Admin Dose 83.333 MLS/HR; Start 01/01/17 at 03:00 Meropenem (Merrem 500 Mg/ 100 ml (Pmx)) 100 ml @ 200 mls/hr Q8 IVPB Last administered on 01/01/17t 13:31; Admin Dose 200 MLS/HR; Start 12/31/16 at 22:00 Famotidine (Pepcid) 20 mg Q12 PO ; Start 01/01/17 at 21:00 Miscellaneous Information (*Rx Drug Level Order Reminder*) VANCOMYCIN TROUGH 01/02 AT 1400 ONCE ONCE XX ; Start 01/02/17 at 14:00; Stop 01/02/17 at 14:01 AUGUSTUS CASTELLANOS NP January 01, 2017 15:31
--- NOTE | 2017-01-01 17:35 | PN ---
DATE: SUBJECTIVE: After placement of the drainage catheter into the left nephrectomy fossa patient is fee ling better and has much less pain. No fever. OBJECTIVE: VITAL SIGNS: Temperature 98.5, heart rate 67, respirations 19, blood pressure 103/67, saturation 97 % on room air. LABORATORY DATA: Glucose, BUN, creatinine, sodium and potassium are within normal limits today. WBC today is 7400 with 72% segmented, which is normal. Hemoglobin 13.4, hematocrit 38.6. Apparentl y yesterday successfully the radiologist placed a pigtail catheter in the left nephrectomy for ____ collection and aspirated purulent fluid. A culture was sent and so far the culture does show 2 gram s, 2+ gram-negative rods and leukocytes and no culture is available yet sensitivity. ABDOMEN: Soft. The patient's catheter is draining bloody fluid, about 40 mL. ASSESSMENT AND PLAN: Successful placement of the catheter in the post-nephrectomy collection site o n the left side. I assume the specimen has been sent for amylase and lipase and will await final cu lture result and sensitivity and report of the amylase and lipase from the fluid from the drainage a sharita. PLAN: Continue antibiotic as recommended by ID. Dictated By: CHARMAINE HANSON/RAFY Conf#: [id number] DID#: [id number]
[2017-01-01] MEDS: FAMOTIDINE 20 MG TAB PO SCH (20:05)
[2017-01-01 20:10] VITALS: BP 117/71; RESP 18
[2017-01-02] MEDS: MEROPENEM 500 MG/100 ML (PMX) 100 ML IVPB SCH (05:23)
[2017-01-02 07:31] LABS: ADD SCAN DIFF NO
[2017-01-02 07:41] LABS: BASOPHILS % 0.4 % (0.0-2.0); EOSINOPHILS # 0.2 10^3/ul (0.0-0.5); EOSINOPHILS % 3.7 % (0.0-7.0); HEMATOCRIT 40.3 % (42.0-52.0); HEMOGLOBIN 13.6 g/dl (14.0-18.0); LYMPHOCYTES # 1.2 10^3/ul (0.8-2.9); LYMPHOCYTES % 20.5 % (15.0-51.0); MEAN CORPUSCULAR HEMOGLOBIN 30.9 pg (29.0-33.0); MEAN CORPUSCULAR HGB CONC 33.7 g/dl (32.0-37.0); MEAN CORPUSCULAR VOLUME 91.6 fl (82.0-101.0); MEAN PLATELET VOLUME 11.5 fl (7.4-10.4); MONOCYTE # 0.8 10^3/ul (0.3-0.9); MONOCYTES % 13.7 % (0.0-11.0); NEUTROPHIL # 3.4 10^3/ul (1.6-7.5); PLATELET COUNT 195 10^3/UL (140-415); RED CELL DISTRIBUTION WIDTH 12.7 % (11.5-14.5); WHITE BLOOD COUNT 5.6 10^3/ul (4.8-10.8)
[2017-01-02 08:07] LABS: CALCIUM 9.1 mg/dl (8.4-10.2); CREATININE 0.88 mg/dl (0.61-1.24); POTASSIUM 4.2 mmol/L (3.5-5.1)
[2017-01-02] MEDS: FAMOTIDINE 20 MG TAB PO SCH ×2 (08:34→20:12)
[2017-01-02 09:37] VITALS: BP 104/61; RESP 18
--- NOTE | 2017-01-02 13:13 | CONS ---
Date/Time of Note Date/Time of Note DATE: 01/02/17 TIME: 13:12 Assessment/Plan Assessment/Plan Chief Complaint/Hosp Course SUBJECTIVE: No acute changes overnight. The patient is alert, denies pain, looks comfortable, no fevers. ANTIMICROBIALS: The patient is on IV vancomycin and Merrem. MICROBIOLOGY: Fluid cx + Kleb. PHYSICAL EXAMINATION: GENERAL: Well-developed elderly man who is awake, in no distress. HEENT: Head atraumatic, normocephalic. Sclerae anicteric. Buccal mucosa dry. NECK: Supple, trachea midline. CHEST: Rise symmetrical. Breath sounds diminished to bases. HEART: S1, S2. ABDOMEN: Soft. Bowel sounds present. EXTREMITIES: Without cyanosis. ASSESSMENT: 1. Recurrent fluid left perinephric abscess, s/p CT guided drainage. 2. Systemic inflammatory response syndrome. 3. History of left renal cell carcinoma status post nephrectomy several years ago. 4. History of pancreatic stent placement on 03/23/2016. PLAN: Remains stable, change abx to Rocephin, anticipate dc on oral Levaquin for 2 + weeks and probiotics [facility] staff Problems: Consultation Date/Type/Reason Admit Date/Time December 30, 2016 at 00:28 Type of Consultation: id Exam/Review of Systems Vital Signs Vitals Vital Signs Date Time Temp Pulse Resp B/P Pulse Ox O2 Delivery O2 Flow Rate FiO2 01/02/17 09:37 98.8 63 18 104/61 96 12/31/16 15:50 Room Air 12/31/16 15:30 2 Intake and Output 01/01/17 01/01/17 01/02/17 15:00 23:00 07:00 Intake Total 100 ml 940 ml 400 ml Output Total 190 ml 620 ml Balance 100 ml 750 ml -220 ml Results Result Diagram: 01/02/17 0719 01/02/17 0719 Results 24 hrs Laboratory Tests Test 01/01/17 17:01 01/02/17 07:19 Bedside Glucose 128 White Blood Count 5.6 # Red Blood Count 4.40 L Hemoglobin 13.6 L Hematocrit 40.3 L Mean Corpuscular Volume 91.6 Mean Corpuscular Hemoglobin 30.9 Mean Corpuscular Hemoglobin Concent 33.7 Red Cell Distribution Width 12.7 Platelet Count 195 Mean Platelet Volume 11.5 H Neutrophils % 61.0 Lymphocytes % 20.5 Monocytes % 13.7 H Eosinophils % 3.7 Basophils % 0.4 Nucleated Red Blood Cells % 0.0 Neutrophils # 3.4 Lymphocytes # 1.2 Monocytes # 0.8 Eosinophils # 0.2 Basophils # 0.0 Nucleated Red Blood Cells # 0.0 Sodium Level 135 Potassium Level 4.2 Chloride Level 104 Carbon Dioxide Level 25 Anion Gap 10 Blood Urea Nitrogen 12 Creatinine 0.88 Glucose Level 102 Calcium Level 9.1 Medications Medications Current Medications Morphine Sulfate (morphine) 2 mg Q4H PRN IV PAIN Last administered on 01/01/17 05:44; Admin Dose 2 MG; Start 12/30/16 at 02:00 Morphine Sulfate (morphine) 4 mg Q4H PRN IV PAIN Last administered on 12/31/16 06:45; Admin Dose 4 MG; Start 12/30/16 at 02:00 Hydromorphone HCl (Dilaudid) 0.5 mg Q4H PRN IV PAIN Last administered on 23:26; Admin Dose 0.5 MG; Start 12/30/16 at 02:00 Ondansetron HCl (Zofran Inj) 4 mg Q6H PRN IV NAUSEA AND/OR VOMITING; Start 12/30 at 05:30 Docusate Sodium (Colace) 100 mg Q12H PRN PO CONSTIPATION; Start 12/30/16 at 05: 30 Bisacodyl (Dulcolax Supp) 10 mg DAILY PRN [place] CONSTIPATION; Start 12/30/16 at 05: 30 Zolpidem Tartrate (Ambien) 5 mg QHS PRN PO SLEEP; Start 12/30/16 at 05:30 Docusate Sodium (Colace) 100 mg BID PRN PO CONSTIPATION Last administered on 13:40; Admin Dose 100 MG; Start 12/30/16 at 06:00 Acetaminophen/ Hydrocodone Bitart 1 tab 1 tab Q6H PRN PO breakthrough pain Last administered on 01/01/17 17:22; Admin Dose 1 TAB; Start 12/30/16 at 15:30 Meropenem (Merrem 500 Mg/ 100 ml (Pmx)) 100 ml @ 200 mls/hr Q8 IVPB Last administered on 01/02/17 05:23; Admin Dose 200 MLS/HR; Start 12/31/16 at 22:00 Famotidine (Pepcid) 20 mg Q12 PO Last administered on 01/02/17t 08:34; Admin Dose 20 MG; Start 01/01/17 at 21:00 AUGUSTUS CASTELLANOS NP January 02, 2017 13:13
--- NOTE | 2017-01-02 13:40 | PN ---
Date/Time of Note Date/Time of Note DATE: 01/02/17 TIME: 13:37 Assessment/Plan VTE Prophylaxis VTE Prophylaxis Intervention: SCD's Lines/Catheters [facility]from [facility] Saline Lock Urinary Cath still in place: No Assessment/Plan Chief Complaint/Hosp Course Assessment/Plan This is a 61-year-old male who presented to the emergency room with left-sided abdominal and flank pain now managed for: #1 Sepsis 2/2 Recurrent L renal fossa Collection / abscess Status post Successful 10 [place] drain placement into the left renal fossa abscess. General surgery and infectious disease following #2 Minimal L sided infiltrate r/o PNA #3 History of renal cell carcinoma: Status post left renal nephrectomy. PLAN: * Continue antibiotics, appreciate ID input * F/u cultures, amylase and lipase levels on drainage fluid. * If Lipase levels are elevated, will order MRCP, as previous MRCP had shown dilatation in the pancreatic duct and patient underwent ERCP and stent placement at that time. * Serum lipase is however normal at this time * Continue supportive care. We will continue monitor patient closely for recommendation management treatment as clinical course Disposition: Follow up with general surgery regarding discharge (questionable if lipase could be followed up as outpatient) Problems: Subjective 24 Hr Interval Summary Free Text/Dictation Patient denies of any chest pain or shortness of breath Denies having any flank pain Tolerating oral intake Exam/Review of Systems Vital Signs Vitals Vital Signs Date Time Temp Pulse Resp B/P Pulse Ox O2 Delivery O2 Flow Rate FiO2 01/02/17 09:37 98.8 63 18 104/61 96 12/31/16 15:50 Room Air 12/31/16 15:30 2 Intake and Output 01/01/17 01/01/17 01/02/17 15:00 23:00 07:00 Intake Total 100 ml 940 ml 400 ml Output Total 190 ml 620 ml Balance 100 ml 750 ml -220 ml Exam General: The patient is moderately overweight, Not in acute distress. HEENT: Atraumatic, normocephalic. The pupils are equal and round . Neck: Supple with full range of motion. Chest: Normal expansion of the thorax during inspiration Lungs: Clear to auscultation bilaterally Heart: Normal S1-S2, Regular rhythm and rate. Abdomen: Soft , nontender, nondistended , bowel sounds are present. Drain is intact in the left flank area Extremities: Normal to inspection, no edema no cyanosis Neurologic: Normal mental status,The patient is awake, alert and oriented . Results Result Diagram: 01/02/1771801/02/17 07 Results 24 hrs Laboratory Tests Test 01/01/17 17:01 01/02/17 07:19 Bedside Glucose 128 White Blood Count 5.6 # Red Blood Count 4.40 L Hemoglobin 13.6 L Hematocrit 40.3 L Mean Corpuscular Volume 91.6 Mean Corpuscular Hemoglobin 30.9 Mean Corpuscular Hemoglobin Concent 33.7 Red Cell Distribution Width 12.7 Platelet Count 195 Mean Platelet Volume 11.5 H Neutrophils % 61.0 Lymphocytes % 20.5 Monocytes % 13.7 H Eosinophils % 3.7 Basophils % 0.4 Nucleated Red Blood Cells % 0.0 Neutrophils # 3.4 Lymphocytes # 1.2 Monocytes # 0.8 Eosinophils # 0.2 Basophils # 0.0 Nucleated Red Blood Cells # 0.0 Sodium Level 135 Potassium Level 4.2 Chloride Level 104 Carbon Dioxide Level 25 Anion Gap 10 Blood Urea Nitrogen 12 Creatinine 0.88 Glucose Level 102 Calcium Level 9.1 Medications Medications Current Medications Morphine Sulfate (morphine) 2 mg Q4H PRN IV PAIN Last administered on 01/01/17 05:44; Admin Dose 2 MG; Start 12/30/16 at 02:00 Morphine Sulfate (morphine) 4 mg Q4H PRN IV PAIN Last administered on 12/31/16 06:45; Admin Dose 4 MG; Start 12/30/16 at 02:00 Hydromorphone HCl (Dilaudid) 0.5 mg Q4H PRN IV PAIN Last administered on 23:26; Admin Dose 0.5 MG; Start 12/30/16 at 02:00 Ondansetron HCl (Zofran Inj) 4 mg Q6H PRN IV NAUSEA AND/OR VOMITING; Start 12/30 at 05:30 Docusate Sodium (Colace) 100 mg Q12H PRN PO CONSTIPATION; Start 12/30/16 at 05: 30 Bisacodyl (Dulcolax Supp) 10 mg DAILY PRN [place] CONSTIPATION; Start 12/30/16 at 05: 30 Zolpidem Tartrate (Ambien) 5 mg QHS PRN PO SLEEP; Start 12/30/16 at 05:30 Docusate Sodium (Colace) 100 mg BID PRN PO CONSTIPATION Last administered on 13:40; Admin Dose 100 MG; Start 12/30/16 at 06:00 Acetaminophen/ Hydrocodone Bitart ([place] (10/325)) 1 tab Q6H PRN PO breakthrough pain Last administered on 01/01/17 17:22; Admin Dose 1 TAB; Start 12/30/16 at 15:30 Famotidine 20 mg 20 mg Q12 PO Last administered on 01/02/17 08:34; Admin Dose 20 MG; Start 01/01/17 at 21:00 Ceftriaxone Sodium (Rocephin) 50 ml @ 100 mls/hr Q24H IVPB ; Start 01/02/17 at 13:30 KATE HARRISON MD January 02, 2017 13:40
[2017-01-02] MEDS: CEFTRIAXONE 1 GM/50 ML (PMX) 50 ML IVPB SCH (14:44)
[2017-01-02] MEDS: HYDROmorphONE 1 MG/ML SYG IV PRN (17:22)
--- NOTE | 2017-01-02 19:18 | PN ---
DATE: SUBJECTIVE: States that he feels good. Almost no pain. Pigtail drain in place draining. Tolerati ng diet. OBJECTIVE: VITAL SIGNS: 98.8, 63, 18, 104/61, saturation 96% on room air. LABORATORY DATA: WBC today is 5600 with 61% neutrophils, hemoglobin 13.6, hematocrit 40.3. Luggage Maker ry: BUN, creatinine, sodium, and potassium are within normal limits. The specimen from the drainag e of the cavity has been sent to lab for amylase and lipase, but the lab here, they do not do amylas e and lipase and they send it out this for body fluid amylase and lipase. It takes 3 to 4 days to g et the results back. ABDOMEN: Soft. Pigtail tube draining serosanguineous fluid. Clear, not purulent. Amount of drain age 60 mL in the past 24 hours. PLAN: Continue antibiotics. They have changed the antibiotics to Rocephin. Microbiology has revea led klebsiella species. Continue current care. We will continue to follow. Await results of the a mylase and lipase from the outside lab. Dictated By: CHARMAINE RUSHING MD PS/RAFY Conf#: [id number] DID#: [id number]
[2017-01-02 20:04] VITALS: BP 115/67; PULSE 66; RESP 18
[2017-01-02] MEDS: morphine 2 MG INJ IV PRN (20:12)
[2017-01-03] MEDS: HYDROmorphONE 1 MG/ML SYG IV PRN ×4 (00:18→23:16)
[2017-01-03 06:08] LABS: ADD SCAN DIFF NO
[2017-01-03 06:13] LABS: BASOPHILS % 0.3 % (0.0-2.0); EOSINOPHILS # 0.3 10^3/ul (0.0-0.5); HEMATOCRIT 44.3 % (42.0-52.0); HEMOGLOBIN 14.8 g/dl (14.0-18.0); LYMPHOCYTES # 1.8 10^3/ul (0.8-2.9); LYMPHOCYTES % 28.1 % (15.0-51.0); MEAN CORPUSCULAR HEMOGLOBIN 30.5 pg (29.0-33.0); MEAN CORPUSCULAR HGB CONC 33.4 g/dl (32.0-37.0); MEAN CORPUSCULAR VOLUME 91.2 fl (82.0-101.0); MEAN PLATELET VOLUME 11.7 fl (7.4-10.4); MONOCYTE # 0.7 10^3/ul (0.3-0.9); MONOCYTES % 11.4 % (0.0-11.0); NEUTROPHIL # 3.6 10^3/ul (1.6-7.5); NEUTROPHILS % 55.3 % (39.0-77.0); PLATELET COUNT 242 10^3/UL (140-415); RED BLOOD COUNT 4.86 10^6/ul (4.70-6.10); RED CELL DISTRIBUTION WIDTH 12.5 % (11.5-14.5); WHITE BLOOD COUNT 6.5 10^3/ul (4.8-10.8)
[2017-01-03 07:19] LABS: ALBUMIN 3.6 g/dl (3.3-4.9); ALBUMIN/GLOBULIN RATIO 1.12; BILIRUBIN,INDIRECT 0.2 mg/dl (0-1.1); BILIRUBIN,TOTAL 0.2 mg/dl (0.2-1.3); CALCIUM 9.9 mg/dl (8.4-10.2); CREATININE 0.92 mg/dl (0.61-1.24); POTASSIUM 4.7 mmol/L (3.5-5.1); TOTAL PROTEIN 6.8 g/dl (6.1-8.1)
[2017-01-03 07:34] VITALS: BP 102/59; RESP 18
[2017-01-03] MEDS: FAMOTIDINE 20 MG TAB PO SCH ×2 (08:56→20:32)
[2017-01-03] MEDS: DOCUSATE SODIUM 100 MG CAP PO PRN (11:38)
--- NOTE | 2017-01-03 13:34 | CONS ---
Date/Time of Note Date/Time of Note DATE: 01/03/17 TIME: 13:34 Assessment/Plan Assessment/Plan Chief Complaint/Hosp Course SUBJECTIVE: No acute changes overnight. The patient is alert, denies pain, looks comfortable, no fevers. ANTIMICROBIALS: Rocephin MICROBIOLOGY: Fluid cx + Kleb. PHYSICAL EXAMINATION: GENERAL: Well-developed elderly man who is awake, in no distress. HEENT: Head atraumatic, normocephalic. Sclerae anicteric. Buccal mucosa dry. NECK: Supple, trachea midline. CHEST: Rise symmetrical. Breath sounds diminished to bases. HEART: S1, S2. ABDOMEN: Soft. Bowel sounds present. EXTREMITIES: Without cyanosis. ASSESSMENT: 1. Recurrent fluid left perinephric abscess, s/p CT guided drainage. 2. Systemic inflammatory response syndrome. 3. History of left renal cell carcinoma status post nephrectomy several years ago. 4. History of pancreatic stent placement on 03/23/2016. PLAN: Remains stable, continue abx, anticipate dc on oral Levaquin for 2 + weeks and probiotics, f/u surgical rec-s [facility] staff Problems: Consultation Date/Type/Reason Admit Date/Time December 30, 2016 at 00:28 Type of Consultation: id Exam/Review of Systems Vital Signs Vitals Vital Signs Date Time Temp Pulse Resp B/P Pulse Ox O2 Delivery O2 Flow Rate FiO2 01/03/17 07:34 97.8 56 18 102/59 96 01/02/17 20:04 Room Air 12/31/16 15:30 2 Intake and Output 01/02/17 01/02/17 01/03/17 15:00 23:00 07:00 Intake Total 650 ml 320 ml Output Total 420 ml 320 ml Balance 230 ml 0 ml Results Result Diagram: 01/03/17 0540 01/03/17 0540 Results 24 hrs Laboratory Tests Test 01/03/17 05:40 White Blood Count 6.5 Red Blood Count 4.86 Hemoglobin 14.8 Hematocrit 44.3 Mean Corpuscular Volume 91.2 Mean Corpuscular Hemoglobin 30.5 Mean Corpuscular Hemoglobin Concent 33.4 Red Cell Distribution Width 12.5 Platelet Count 242 # Mean Platelet Volume 11.7 H Neutrophils % 55.3 Lymphocytes % 28.1 Monocytes % 11.4 H Eosinophils % 4.0 Basophils % 0.3 Nucleated Red Blood Cells % 0.0 Neutrophils # 3.6 Lymphocytes # 1.8 Monocytes # 0.7 Eosinophils # 0.3 Basophils # 0.0 Nucleated Red Blood Cells # 0.0 Sodium Level 136 Potassium Level 4.7 Chloride Level 104 Carbon Dioxide Level 24 Anion Gap 13 Blood Urea Nitrogen 17 Creatinine 0.92 Glucose Level 99 Calcium Level 9.9 Magnesium Level 2.0 Total Bilirubin 0.2 Direct Bilirubin 0.00 Indirect Bilirubin 0.2 Aspartate Amino Transf (AST/SGOT) 21 Alanine Aminotransferase (ALT/SGPT) 33 Alkaline Phosphatase 75 Total Protein 6.8 Albumin 3.6 Globulin 3.20 Albumin/Globulin Ratio 1.12 Lipase 61 Medications Medications Current Medications Morphine Sulfate (morphine) 2 mg Q4H PRN IV PAIN Last administered on 01/02/17 20:12; Admin Dose 2 MG; Start 12/30/16 at 02:00 Morphine Sulfate (morphine) 4 mg Q4H PRN IV PAIN Last administered on 12/31/16 06:45; Admin Dose 4 MG; Start 12/30/16 at 02:00 Hydromorphone HCl (Dilaudid) 0.5 mg Q4H PRN IV PAIN Last administered on 11:39; Admin Dose 0.5 MG; Start 12/30/16 at 02:00 Ondansetron HCl (Zofran Inj) 4 mg Q6H PRN IV NAUSEA AND/OR VOMITING; Start 12/30 at 05:30 Docusate Sodium (Colace) 100 mg Q12H PRN PO CONSTIPATION; Start 12/30/16 at 05: 30 Bisacodyl (Dulcolax Supp) 10 mg DAILY PRN [place] CONSTIPATION; Start 12/30/16 at 05: 30 Zolpidem Tartrate (Ambien) 5 mg QHS PRN PO SLEEP; Start 12/30/16 at 05:30 Docusate Sodium (Colace) 100 mg BID PRN PO CONSTIPATION Last administered on 11:38; Admin Dose 100 MG; Start 12/30/16 at 06:00 Acetaminophen/ Hydrocodone Bitart ([place] (10/325)) 1 tab Q6H PRN PO breakthrough pain Last administered on 01/01/17 17:22; Admin Dose 1 TAB; Start 12/30/16 at 15:30 Famotidine 20 mg 20 mg Q12 PO Last administered on 01/03/17 08:56; Admin Dose 20 MG; Start 01/01/17 at 21:00 Ceftriaxone Sodium (Rocephin) 50 ml @ 100 mls/hr Q24H IVPB Last administered on 01/02/17 14:44; Admin Dose 100 MLS/HR; Start 01/02/17 at 13:30 AUGUSTUS CASTELLANOS NP January 03, 2017 13:34
[2017-01-03] MEDS: CEFTRIAXONE 1 GM/50 ML (PMX) 50 ML IVPB SCH (13:57)
--- NOTE | 2017-01-03 14:06 | PN ---
Date/Time of Note Date/Time of Note DATE: 01/03/17 TIME: 14:04 Assessment/Plan VTE Prophylaxis VTE Prophylaxis Intervention: SCD's Lines/Catheters [facility]from [facility] Saline Lock Urinary Cath still in place: No Assessment/Plan Chief Complaint/Hosp Course Assessment/Plan This is a 61-year-old male who presented to the emergency room with left-sided abdominal and flank pain now managed for: #1 Sepsis 2/2 Recurrent L renal fossa Collection / abscess Status post Successful 10 Yi drain placement into the left renal fossa abscess. General surgery and infectious disease following #2 Minimal L sided infiltrate r/o PNA #3 History of renal cell carcinoma: Status post left renal nephrectomy. PLAN: * Continue antibiotics, appreciate ID input * F/u cultures, amylase and lipase levels on drainage fluid. * If Lipase levels are elevated, will order MRCP, as previous MRCP had shown dilatation in the pancreatic duct and patient underwent ERCP and stent placement at that time. * Serum lipase is however normal at this time * Continue supportive care. We will continue monitor patient closely for recommendation management treatment as clinical course Disposition: Plan to discharge home tomorrow 01/04/2017 if clear as per surgical standpoint Problems: Subjective 24 Hr Interval Summary Free Text/Dictation Patient denies of any chest pain or shortness of breath Denies of any CVA tenderness No nausea vomiting or diarrhea Exam/Review of Systems Vital Signs Vitals Vital Signs Date Time Temp Pulse Resp B/P Pulse Ox O2 Delivery O2 Flow Rate FiO2 01/03/17 07:34 97.8 56 18 102/59 96 01/02/17 20:04 Room Air 12/31/16 15:30 2 Intake and Output 01/02/17 01/02/17 01/03/17 15:00 23:00 07:00 Intake Total 650 ml 320 ml Output Total 420 ml 320 ml Balance 230 ml 0 ml Exam General: The patient is well-developed, Not in acute distress. HEENT: Atraumatic, normocephalic. The pupils are equal and round . Neck: Supple with full range of motion. Chest: Normal expansion of the thorax during inspiration Lungs: Clear to auscultation bilaterally Heart: Normal S1-S2, Regular rhythm and rate. Abdomen: Soft , nontender, nondistended , bowel sounds are present. Drain in left flank area intact Extremities: Normal to inspection, no edema no cyanosis Neurologic: Normal mental status,The patient is awake, alert and oriented . Results Result Diagram: 01/03/17 0540 01/03/17 0540 Results 24 hrs Laboratory Tests Test 01/03/17 05:40 White Blood Count 6.5 Red Blood Count 4.86 Hemoglobin 14.8 Hematocrit 44.3 Mean Corpuscular Volume 91.2 Mean Corpuscular Hemoglobin 30.5 Mean Corpuscular Hemoglobin Concent 33.4 Red Cell Distribution Width 12.5 Platelet Count 242 # Mean Platelet Volume 11.7 H Neutrophils % 55.3 Lymphocytes % 28.1 Monocytes % 11.4 H Eosinophils % 4.0 Basophils % 0.3 Nucleated Red Blood Cells % 0.0 Neutrophils # 3.6 Lymphocytes # 1.8 Monocytes # 0.7 Eosinophils # 0.3 Basophils # 0.0 Nucleated Red Blood Cells # 0.0 Sodium Level 136 Potassium Level 4.7 Chloride Level 104 Carbon Dioxide Level 24 Anion Gap 13 Blood Urea Nitrogen 17 Creatinine 0.92 Glucose Level 99 Calcium Level 9.9 Magnesium Level 2.0 Total Bilirubin 0.2 Direct Bilirubin 0.00 Indirect Bilirubin 0.2 Aspartate Amino Transf (AST/SGOT) 21 Alanine Aminotransferase (ALT/SGPT) 33 Alkaline Phosphatase 75 Total Protein 6.8 Albumin 3.6 Globulin 3.20 Albumin/Globulin Ratio 1.12 Lipase 61 Medications Medications Current Medications Morphine Sulfate (morphine) 2 mg Q4H PRN IV PAIN Last administered on 01/02/17 20:12; Admin Dose 2 MG; Start 12/30/16 at 02:00 Morphine Sulfate (morphine) 4 mg Q4H PRN IV PAIN Last administered on 12/31/16 06:45; Admin Dose 4 MG; Start 12/30/16 at 02:00 Hydromorphone HCl (Dilaudid) 0.5 mg Q4H PRN IV PAIN Last administered on 11:39; Admin Dose 0.5 MG; Start 12/30/16 at 02:00 Ondansetron HCl (Zofran Inj) 4 mg Q6H PRN IV NAUSEA AND/OR VOMITING; Start 12/30 at 05:30 Docusate Sodium (Colace) 100 mg Q12H PRN PO CONSTIPATION; Start 12/30/16 at 05: 30 Bisacodyl (Dulcolax Supp) 10 mg DAILY PRN [place] CONSTIPATION; Start 12/30/16 at 05: 30 Zolpidem Tartrate (Ambien) 5 mg QHS PRN PO SLEEP; Start 12/30/16 at 05:30 Docusate Sodium (Colace) 100 mg BID PRN PO CONSTIPATION Last administered on 11:38; Admin Dose 100 MG; Start 12/30/16 at 06:00 Acetaminophen/ Hydrocodone Bitart ([place] (10/325)) 1 tab Q6H PRN PO breakthrough pain Last administered on 01/01/17 17:22; Admin Dose 1 TAB; Start 12/30/16 at 15:30 Famotidine 20 mg 20 mg Q12 PO Last administered on 01/03/17 08:56; Admin Dose 20 MG; Start 01/01/17 at 21:00 Ceftriaxone Sodium (Rocephin) 50 ml @ 100 mls/hr Q24H IVPB Last administered on 01/03/17 13:57; Admin Dose 100 MLS/HR; Start 01/02/17 at 13:30 KATE HARRISON MD January 03, 2017 14:06
[2017-01-03] MEDS: NACL 0.9% 3 ML SYG IV SCH (15:20)
--- NOTE | 2017-01-03 18:23 | PN ---
DATE: 01/03/2017 SUBJECTIVE: Still complains that he has pain and the level of pain is 8/10. OBJECTIVE: VITAL SIGNS: Temperature 97.8, heart rate 56, respiration 18, blood pressure 102/59, saturation 96% on room air. HEENT: WBC 6500 with 55% neutrophils. Hemoglobin and hematocrit are 14.8 and 44.3. Chemistry within normal limits. The amylase and lipase which was sent from the drainage fluid is not back yet. The drainage fluid is serosanguineous and clear. It is not purulent. Total drainage fluid in the past 24 hours is 40 mL. As was mentioned before, the microbiology culture has grown Klebsiella species and patient is under treatment with antibiotics per infectious disease choice. ASSESSMENT: Recurrent fluid abscess formation at the bed of the left nephrectomy site for the renal cell carcinoma. The last time that patient accumulated fluid and presented with chills and fevers and pain, the specimen was sent for amylase and lipase and it was very high. At this time also the fluid was sent for culture. This grew Klebsiella species and also was sent for amylase and lipase, which is not back yet. It appears that there is some damage to probably the tail of the pancreas and is oozing very slowly, causing accumulation of the fluid and then infection of the fluid over this. The last time Dr. Hein, the GI field consultant, was trying to cannulate pancreatic duct which he did and injected the dye, they wanted to find out if there is any leakage from the tail of the pancreas or body of the pancreas or which part of the pancreas into the nephrectomy site. it did did not show any obvious leakage. PLAN: I am not sure what is the best plan. eventually maybe the patient needs an exploration of that area of_inflammation, which is a very dangerous and very difficult case to do, especially that we do not know what is causing this leakage. If the leakage proves that there is no lipase elevation, then we may think that this is a foreign body reaction due to the operation and nephrectomy maybe nephrectomy suture material or the eliseo material. Otherwise, if it is positive, then we have to find another way, maybe doing a fistulogram or a sinogram through the pigtail drain to see if it fills up any parts of the pancreas. We will continue antibiotic treatment while waiting for the result of lipase and amylase on the drainage sample and we will continue to follow the patient along with other colleagues. If the medical service planning to discharge the patient, then the pigtail tube should remain there and should not be removed and the patient should be sent to Dr. Rojas' office after 2 weeks. Dictated By: CHARMAINE HANSON/RAFY Conf#: [id number] DID#: [id number] MTDD
[2017-01-03 19:16] VITALS: BP 115/63; RESP 20
[2017-01-04 05:48] LABS: ADD SCAN DIFF NO
[2017-01-04 05:51] LABS: BASOPHIL # 0.1 10^3/ul (0.0-0.1); BASOPHILS % 0.7 % (0.0-2.0); EOSINOPHILS # 0.3 10^3/ul (0.0-0.5); EOSINOPHILS % 4.4 % (0.0-7.0); HEMATOCRIT 43.5 % (42.0-52.0); HEMOGLOBIN 15.1 g/dl (14.0-18.0); MEAN CORPUSCULAR HEMOGLOBIN 31.6 pg (29.0-33.0); MEAN CORPUSCULAR HGB CONC 34.7 g/dl (32.0-37.0); MEAN PLATELET VOLUME 11.6 fl (7.4-10.4); MONOCYTE # 0.7 10^3/ul (0.3-0.9); MONOCYTES % 9.7 % (0.0-11.0); NEUTROPHIL # 4.3 10^3/ul (1.6-7.5); PLATELET COUNT 244 10^3/UL (140-415); RED BLOOD COUNT 4.78 10^6/ul (4.70-6.10); RED CELL DISTRIBUTION WIDTH 12.6 % (11.5-14.5); WHITE BLOOD COUNT 7.5 10^3/ul (4.8-10.8)
[2017-01-04 06:27] LABS: ALBUMIN 3.6 g/dl (3.3-4.9); ALBUMIN/GLOBULIN RATIO 0.97; BILIRUBIN,INDIRECT 0.2 mg/dl (0-1.1); BILIRUBIN,TOTAL 0.2 mg/dl (0.2-1.3); CALCIUM 9.5 mg/dl (8.4-10.2); CREATININE 0.89 mg/dl (0.61-1.24); MAGNESIUM 2.1 mg/dl (1.7-2.5); POTASSIUM 4.4 mmol/L (3.5-5.1); TOTAL PROTEIN 7.3 g/dl (6.1-8.1)
[2017-01-04 08:02] VITALS: BP 97/59; RESP 20
[2017-01-04] MEDS: FAMOTIDINE 20 MG TAB PO SCH ×2 (08:36→20:05)
--- NOTE | 2017-01-04 11:17 | PDOCDIS ---
Discharge Instructions CONDITION Patient Condition: Good HOME CARE INSTRUCTIONS: Special Diet: 1800 ADA ACTIVITY: Activity Restrictions: Slowly Increase Activity Rest between Activity Avoid heavy lifting Avoid Heavy Housework FOLLOW UP/APPOINTMENTS Appointments Follow up with Dr. Rojas in 2 weeks FOllow up with PCP in one week KATE HARRISON MD January 04, 2017 11:17
[2017-01-04] MEDS ORDERED: SULF1TAB31 PO (11:19)
[2017-01-04] MEDS ORDERED: CIPR500T4 PO (11:19)
[2017-01-04] MEDS ORDERED: FAMO20TA18 PO (11:19)
--- NOTE | 2017-01-04 13:21 | CONS ---
Date/Time of Note Date/Time of Note DATE: 01/04/17 TIME: 13:19 Assessment/Plan Assessment/Plan Chief Complaint/Hosp Course SUBJECTIVE: No acute changes overnight. The patient is alert, denies pain, looks comfortable, no fevers, + loose stools ANTIMICROBIALS: Rocephin MICROBIOLOGY: Fluid cx + Kleb. PHYSICAL EXAMINATION: GENERAL: Well-developed elderly man who is awake, in no distress. HEENT: Head atraumatic, normocephalic. Sclerae anicteric. Buccal mucosa dry. NECK: Supple, trachea midline. CHEST: Rise symmetrical. Breath sounds diminished to bases. HEART: S1, S2. ABDOMEN: Soft. Bowel sounds present. EXTREMITIES: Without cyanosis. ASSESSMENT: 1. Recurrent fluid left perinephric abscess, s/p CT guided drainage. 2. Systemic inflammatory response syndrome. 3. History of left renal cell carcinoma status post nephrectomy several years ago. 4. History of pancreatic stent placement on 03/23/2016. PLAN: Remains stable, surgical rec-s noted, continue abx, anticipate dc on oral Levaquin for 2-4 weeks, possibly longer. Pt to f/u with Dr Rojas , will send stool for C dif, continue probiotics [facility] staff Problems: Consultation Date/Type/Reason Admit Date/Time December 30, 2016 at 00:28 Type of Consultation: id Exam/Review of Systems Vital Signs Vitals Vital Signs Date Time Temp Pulse Resp B/P Pulse Ox O2 Delivery O2 Flow Rate FiO2 01/04/17 08:02 97.9 60 20 97/59 97 01/02/17 20:04 Room Air 12/31/16 15:30 2 Intake and Output 01/03/17 01/03/17 01/04/17 15:00 23:00 07:00 Intake Total 50 ml 1100 ml 400 ml Output Total 10 ml Balance 50 ml 1090 ml 400 ml Results Result Diagram: 01/04/1717 01/04/1717 Results 24 hrs Laboratory Tests Test 01/04/17 05:17 White Blood Count 7.5 Red Blood Count 4.78 Hemoglobin 15.1 Hematocrit 43.5 Mean Corpuscular Volume 91.0 Mean Corpuscular Hemoglobin 31.6 Mean Corpuscular Hemoglobin Concent 34.7 Red Cell Distribution Width 12.6 Platelet Count 244 Mean Platelet Volume 11.6 H Neutrophils % 57.0 Lymphocytes % 27.0 Monocytes % 9.7 Eosinophils % 4.4 Basophils % 0.7 Nucleated Red Blood Cells % 0.0 Neutrophils # 4.3 Lymphocytes # 2.0 Monocytes # 0.7 Eosinophils # 0.3 Basophils # 0.1 Nucleated Red Blood Cells # 0.0 Sodium Level 138 Potassium Level 4.4 Chloride Level 104 Carbon Dioxide Level 27 Anion Gap 11 Blood Urea Nitrogen 16 Creatinine 0.89 Glucose Level 106 Calcium Level 9.5 Magnesium Level 2.1 Total Bilirubin 0.2 Direct Bilirubin 0.00 Indirect Bilirubin 0.2 Aspartate Amino Transf (AST/SGOT) 31 Alanine Aminotransferase (ALT/SGPT) 37 Alkaline Phosphatase 76 Total Protein 7.3 Albumin 3.6 Globulin 3.70 H Albumin/Globulin Ratio 0.97 Medications Medications Current Medications Morphine Sulfate (morphine) 2 mg Q4H PRN IV PAIN Last administered on 01/02/17 20:12; Admin Dose 2 MG; Start 12/30/16 at 02:00 Morphine Sulfate (morphine) 4 mg Q4H PRN IV PAIN Last administered on 12/31/16 06:45; Admin Dose 4 MG; Start 12/30/16 at 02:00 Hydromorphone HCl (Dilaudid) 0.5 mg Q4H PRN IV PAIN Last administered on 23:16; Admin Dose 0.5 MG; Start 12/30/16 at 02:00 Ondansetron HCl (Zofran Inj) 4 mg Q6H PRN IV NAUSEA AND/OR VOMITING; Start 12/30 at 05:30 Docusate Sodium (Colace) 100 mg Q12H PRN PO CONSTIPATION; Start 12/30/16 at 05: 30 Bisacodyl (Dulcolax Supp) 10 mg DAILY PRN [place] CONSTIPATION; Start 12/30/16 at 05: 30 Zolpidem Tartrate (Ambien) 5 mg QHS PRN PO SLEEP; Start 12/30/16 at 05:30 Docusate Sodium (Colace) 100 mg BID PRN PO CONSTIPATION Last administered on 11:38; Admin Dose 100 MG; Start 12/30/16 at 06:00 Acetaminophen/ Hydrocodone Bitart ([place] (10/325)) 1 tab Q6H PRN PO breakthrough pain Last administered on 01/01/17 17:22; Admin Dose 1 TAB; Start 12/30/16 at 15:30 Famotidine 20 mg 20 mg Q12 PO Last administered on 01/04/17 08:36; Admin Dose 20 MG; Start 01/01/17 at 21:00 Ceftriaxone Sodium (Rocephin) 50 ml @ 100 mls/hr Q24H IVPB Last administered on 01/03/17 13:57; Admin Dose 100 MLS/HR; Start 01/02/17 at 13:30 AUGUSTUS CASTELLANOS NP January 04, 2017 13:21
--- NOTE | 2017-01-04 14:05 | PN ---
DATE: 01/04/2017 SUBJECTIVE: No new complaint, no new events. OBJECTIVE: VITAL SIGNS: Temperature 97.9, heart rate 60 regular, respirations 20, blood pressure 97/59, satura tion 97% in room air. LABORATORY DATA: WBC 7500 with 57% neutrophils, normal differential. Hemoglobin 15, hematocrit 43, normal. Pigtail drain has drained 10 mL since past 24 hours. This is serosanguineous fluid, it is not purul ent. ASSESSMENT AND PLAN: Eliezer is a 61-year-old gentleman who has had renal cell carcinoma on the lef t side, it was operated with nephrectomy a few years ago and since then, once in a while he presents with abdominal and flank pain and discoloration of fluid, and actually infected fluid. On one occa lele at least the fluid was sent for amylase, lipase a few months ago and it was positive for lipase and amylase high levels, so possibility of leak over there between the confines of the pancreas and the fossa of the left nephrectomy. This time it grew Klebsiella pneumoniae species. Antibiotic chambers s been started. Leukocytosis has normalized and the patient is feeling much better. The drainage h as decreased much, it is about 10 mL per 24 hours. PLAN: The patient is going to be discharged by the medical service today and they are going to give antibiotics for 2 weeks and followup. The patient can follow up with Dr. Rojas' office in 2 weeks. In the meanwhile, the patient will go home with the pigtail drain in place and home health care se rvice should go and measure and manage the care of the wound (pigtail drainage system). Dictated By: CHARMAINE HANSON/RAFY Conf#: [id number] DID#: [id number]
[2017-01-04] MEDS: CEFTRIAXONE 1 GM/50 ML (PMX) 50 ML IVPB SCH (14:19)
[2017-01-04] MEDS: HYDROmorphONE 1 MG/ML SYG IV PRN ×2 (16:05→20:06)
--- NOTE | 2017-01-04 16:10 | DS ---
DATE OF ADMISSION: 12/30/2016 DATE OF DISCHARGE: 01/04/2017 CONSULTANTS: 1. Panda John MD 2. Luis Aleman MD 3. Sadia Rashid MD 4. Elise Rodríguez NP DIAGNOSES: 1. Sepsis secondary to recurrent left renal fossa collection abscess status post 10-Grenadian drain pl acement in the left renal fossa abscess. General surgery and infectious disease doctor were consult ed. 2. Minimal left-sided infiltrate, status post IV antibiotics. 3. History of renal cell carcinoma, status post left renal nephrectomy. PROCEDURE: Successful 10-Grenadian drain placement into the left renal fossa abscess on 12/31/2016. MEDICATIONS: 1. Ciprofloxacin 500 mg 1 tab p.o. b.i.d. 2. Pepcid. 3. Bactrim. 4. Colace. 5. Colome. 6. Probiotic. ALLERGIES: NO KNOWN DRUG ALLERGIES. LABORATORY: WBC 7.5, hemoglobin 15.1, hematocrit 43.5, platelets 244. Sodium 138, potassium 4.4, c hloride 104, bicarbonate 27, BUN 16, creatinine 0.81, glucose 106. LFTs all within normal limits. Renal cysts fluid showed Klebsiella pneumoniae and SSB pneumoniae sensitive to Cipro, gentamicin, Le vaquin and Bactrim. HOSPITAL COURSE: This is a pleasant 61-year-old gentleman with past medical history of left renal c arcinoma status post nephrectomy, who presented to [facility] secondary to having left upper quadrant abdominal pain and nausea x4 days. Patient was seen at [facility] for 2 days and diagnosed with acute diverticulitis, was discharged on Cipro and Flagyl and stated the medications did not help him. The pain was 10/10. He came to [facility], which CT abd omen and pelvis was obtained which showed fluid collection in the left nephrectomy bed, mild surroun ding infiltration, small amount of fluid found in the spleen , includes preoperative , an infection and abscess cannot be excluded. Fatty liver the right renal calcification, nonobstr uctive uropathy, scattered sigmoid colon diverticula without evidence of diverticulitis. Small left pleural effusion with associated atelectasis. The patient was seen and evaluated by infectious dis ease and general surgery. General surgery recommended the patient to have IR drainage of abscess. On 12/31/2016, the patient was taken to radiology for successful Grenadian drain placement of left jamshid l fossa abscess which patient tolerated the procedure well. The patient was continued on broad spec trum IV antibiotics via Rocephin and was continued on pain medication. The patient has been able to tolerate his oral intake without any difficulty. His microbiology demonstrated a Klebsiella pneumo niae as per infectious disease, the patient may be discharged home on oral antibiotics x2 weeks with probiotics. As per general surgery, patient is also cleared to be discharged with followup in 2 we eks for removal of drainage. CONDITION AT TIME OF DISCHARGE: Stable. DIET: Regular. ACTIVITY: Light activity x2 weeks. Dictated By: KATE CANCINO/NTS Conf#: [id number] DID#: [id number]
[2017-01-04 20:39] VITALS: BP 112/69; RESP 18
[2017-01-05] MEDS: HYDROmorphONE 1 MG/ML SYG IV PRN (00:07)
[2017-01-05 07:43] VITALS: BP 86/51; RESP 18
[2017-01-05] MEDS: FAMOTIDINE 20 MG TAB PO SCH (09:48)
--- NOTE | 2017-01-05 12:07 | DS ---
Date/Time of Note Date/Time of Note DATE: 01/05/17 TIME: 12:03 Discharge Summary Admission/Discharge Info Admit Date/Time December 30, 2016 at 00:28 Discharge Date/Time 01/05/17 Final Diagnosis DIAGNOSES: 1. Sepsis secondary to recurrent left renal fossa collection abscess status post 10-Mauritanian drain placement in the left renal fossa abscess. General surgery and infectious disease doctor were consulted. 2. Minimal left-sided infiltrate, status post IV antibiotics. 3. History of renal cell carcinoma, status post left renal nephrectomy. Patient Condition: Good Consults Infectious disease General surgery Procedures Status post 10 Mauritanian drain placement in the left renal fossa abscess Hx of Present Illness The patient is a 61-year-old female, presenting to the ER because of left upper quadrant abdominal pain, nausea, vomiting for 4 days. He was seen at [facility] 2 days ago and diagnosed with acute diverticulitis. He was discharged with Cipro and Flagyl. He stated that the medications are not helping him. The pain is 10/10. He denies chills, neck pain, chest pain, dyspnea. He complains of nausea, vomiting mostly mucus, denies diarrhea constipation or dysuria. He smokes half a pack a day, denies drinking Allergies: NKDA Medicatio : See [facility] Course This is a pleasant 61-year-old gentleman with past medical history of left renal carcinoma status post nephrectomy, who presented to [facility] secondary to having left upper quadrant abdominal pain and nausea x4 days. Patient was seen at [facility] for 2 days and diagnosed with acute diverticulitis, was discharged on Cipro and Flagyl and stated the medications did not help him. The pain was 10/10. He came to [facility], which CT abdomen and pelvis was obtained which showed fluid collection in the left nephrectomy bed, mild surrounding infiltration, small amount of fluid found in the spleen , an infection and abscess cannot be excluded. Fatty liver , the right renal calcification, nonobstructive uropathy , scattered sigmoid colon diverticula without evidence of diverticulitis. Small left pleural effusion with associated atelectasis. The patient was seen and evaluated by infectious disease and general surgery. General surgery recommended the patient to have IR drainage of abscess. On 12/31/2016, the patient was taken to radiology for successful Mauritanian drain placement of left renal fossa abscess which patient tolerated the procedure well. The patient was continued on broad spectrum IV antibiotics via Rocephin and was continued on pain medication. The patient has been able to tolerate his oral intake without any difficulty. His microbiology demonstrated a Klebsiella pneumoniae as per infectious disease, the patient may be discharged home on oral antibiotics x2 weeks with probiotics. As per general surgery, patient is also cleared to be discharged with followup in 2 weeks for removal of drainage. Patient was planned to be discharged on 01/04/2017 although unfortunately he had several episodes of diarrhea which may have been secondary to patient was treated with Colace . C. difficile toxin was found to be negative patient has been clear as per infectious disease standpoint for discharge Home Meds Active Scripts Sulfamethoxazole/Trimethoprim* (Bactrim Ds* Tablet) 1 Each Tablet, 1 TAB PO DAILY, #7 TAB Prov:KATE HARRISON MD 01/04/17 Ciprofloxacin Hcl* (Ciprofloxacin Hcl*) 500 Mg Tablet, 500 MG PO BID, #14 TAB Prov:KATE HARRISON MD 01/04/17 Famotidine* (Famotidine*) 20 Mg Tablet, 20 MG PO DAILY for 30 Days, TAB Prov:KATE HARRISON MD 01/04/17 Hydrocodone Bit/Acetaminophen (Anexsia 5-325 Mg Tablet) 1 Tab Tablet, 1 TAB PO Q6H Y for MODERATE PAIN LEVEL 4-6 for 14 Days, #40 TAB Prov:WILDA PINEDO MD 03/29/16 Docusate Sodium* (Colace*) 100 Mg Capsule, 100 MG PO BID Y for CONSTIPATION for 30 Days, #60 CAP Prov:WILDA PINEDO MD 03/29/16 Discontinued Scripts Ertapenem Sodium (Invanz) 1 Gm Vial, 1 GM IM DAILY for 14 Days, VIAL Prov:MANUELA PHILLIPS 04/13/16 Pending Labs Microbiology Date/Time Source Procedure Growth Status 01/04/17 15:35 Feces Clostridium difficile Toxin Assay - Final Complete KATE HARRISON MD January 05, 2017 12:07
--- NOTE | 2017-01-05 13:21 | CONS ---
Date/Time of Note Date/Time of Note DATE: 01/05/17 TIME: 13:20 Assessment/Plan Assessment/Plan Chief Complaint/Hosp Course SUBJECTIVE: No acute changes overnight. The patient is alert, denies pain, looks comfortable, no fevers, + loose stools ANTIMICROBIALS: Rocephin MICROBIOLOGY: Fluid cx + Kleb. C dif negative PHYSICAL EXAMINATION: GENERAL: Well-developed elderly man who is awake, in no distress. HEENT: Head atraumatic, normocephalic. Sclerae anicteric. Buccal mucosa dry. NECK: Supple, trachea midline. CHEST: Rise symmetrical. Breath sounds diminished to bases. HEART: S1, S2. ABDOMEN: Soft. Bowel sounds present. EXTREMITIES: Without cyanosis. ASSESSMENT: 1. Recurrent fluid left perinephric abscess, s/p CT guided drainage. 2. Systemic inflammatory response syndrome. 3. History of left renal cell carcinoma status post nephrectomy several years ago. 4. History of pancreatic stent placement on 03/23/2016. PLAN: Remains stable, surgical rec-s noted, continue abx, anticipate dc on oral Levaquin for 2-4 weeks, possibly longer. Pt to f/u with Dr Rojas for further rec-s [facility] staff Problems: Consultation Date/Type/Reason Admit Date/Time December 30, 2016 at 00:28 Type of Consultation: id Exam/Review of Systems Vital Signs Vitals Vital Signs Date Time Temp Pulse Resp B/P Pulse Ox O2 Delivery O2 Flow Rate FiO2 01/05/17 07:43 97.7 60 18 86/51 95 01/02/17 20:04 Room Air Intake and Output 01/04/17 01/04/17 01/05/17 15:00 23:00 07:00 Intake Total 50 ml 1120 ml 300 ml Output Total 20 ml Balance 50 ml 1120 ml 280 ml Results Result Diagram: 01/04/1751601/04/17516 Medications Medications Current Medications Morphine Sulfate (morphine) 2 mg Q4H PRN IV PAIN Last administered on 01/02/17 20:12; Admin Dose 2 MG; Start 12/30/16 at 02:00 Morphine Sulfate (morphine) 4 mg Q4H PRN IV PAIN Last administered on 12/31/16 06:45; Admin Dose 4 MG; Start 12/30/16 at 02:00 Hydromorphone HCl (Dilaudid) 0.5 mg Q4H PRN IV PAIN Last administered on 00:07; Admin Dose 0.5 MG; Start 12/30/16 at 02:00 Ondansetron HCl (Zofran Inj) 4 mg Q6H PRN IV NAUSEA AND/OR VOMITING; Start 12/30 at 05:30 Docusate Sodium (Colace) 100 mg Q12H PRN PO CONSTIPATION; Start 12/30/16 at 05: 30 Bisacodyl (Dulcolax Supp) 10 mg DAILY PRN [place] CONSTIPATION; Start 12/30/16 at 05: 30 Zolpidem Tartrate (Ambien) 5 mg QHS PRN PO SLEEP; Start 12/30/16 at 05:30 Docusate Sodium (Colace) 100 mg BID PRN PO CONSTIPATION Last administered on 11:38; Admin Dose 100 MG; Start 12/30/16 at 06:00 Acetaminophen/ Hydrocodone Bitart ([place] (10/325)) 1 tab Q6H PRN PO breakthrough pain Last administered on 01/01/17 17:22; Admin Dose 1 TAB; Start 12/30/16 at 15:30 Famotidine 20 mg 20 mg Q12 PO Last administered on 01/05/17 09:48; Admin Dose 20 MG; Start 01/01/17 at 21:00 Ceftriaxone Sodium (Rocephin) 50 ml @ 100 mls/hr Q24H IVPB Last administered on 01/04/17 14:19; Admin Dose 100 MLS/HR; Start 01/02/17 at 13:30 AUGUSTUS CASTELLANOS NP January 05, 2017 13:20
== END 2017-01-05 14:50 | disposition home health service (06) | DRG 862 ==
LOC: E/R 16:04 → MS2 12-30 00:28
PROVIDERS: ADMIT Family Medicine; ATTEND Family Medicine
PROC: 0W9H30Z Drainage of Retroperitoneum with Drainage Device, Percutaneous Approach (ICD-10-PCS; principal; 2016-12-31)
DX: T81.4XXA Infection following a procedure, initial encounter (principal); A41.89 Other specified sepsis; J90 Pleural effusion, not elsewhere classified; J98.11 Atelectasis; Z85.528 Personal history of other malignant neoplasm of kidney; Z72.0 Tobacco use; Z90.5 Acquired absence of kidney; K76.0 Fatty (change of) liver, not elsewhere classified; R73.9 Hyperglycemia, unspecified; B96.20 Unspecified Escherichia coli [E. coli] as the cause of diseases classified elsewhere; B96.1 Klebsiella pneumoniae [K. pneumoniae] as the cause of diseases classified elsewhere; R19.7 Diarrhea, unspecified
CPT/HCPCS: 36415; 71010; 74177; 77012; 80048; 80053; 80061; 80202; 81001; 81003; 82150; 82962; 83036; 83605; 83690; 83735; 84436; 84479; 84484; 85025; 85610; 85730; 87040; 87045; 87070; 87075; 87086; 93005; 96365; 96366; 96368; 96372; 96375; 96376; J0696; J1170; J1644; J2185; J2250; J2270; J2543; J3010; J3370; J7030; J7040; J7050; Q9967

== ENCOUNTER 2017-08-20 10:19 | Inpatient (IN) | END 2017-09-01 16:40 | disposition home or self-care (01) | DRG 871 ==

== ENCOUNTER 2018-08-17 09:15 | Day surgery (SDC) | END 2018-08-17 12:41 | disposition home or self-care (01) ==